=== PATIENT | female | born 1950 | race Caucasian/White ===

== ENCOUNTER → 2018-05-07 | Outpatient (CLI) | payer MEDICARE ==
[2018-05-07 08:23] LABS: Basophils % (A) 1 %; Eosinophils # (A) 0.4 k/uL (0-0.7); Eosinophils % (A) 5 %; HCT 33.5 % (34.0-46.0); HGB 10.8 gm/dL (11.4-16.0); Lymphocytes # (A) 1.6 k/uL (1.0-4.8); Lymphocytes % (A) 20 %; MCH 28.2 pg (25.0-35.0); MCHC 32.3 g/dL (31.0-37.0); MCV 87.2 fL (80.0-100.0); Mean Platelet Volume 6.6; Monocytes # (A) 0.5 k/uL (0-1.0); Monocytes % (A) 6 %; Neutrophils # (A) 5.4 k/uL (1.3-7.7); Neutrophils % (A) 67 %; Platelet Count 372 k/uL (150-450); RBC 3.84 m/uL (3.80-5.40); RDW 13.7 % (11.5-15.5)
[2018-05-07 08:32] LABS: Albumin 3.8 g/dL (3.5-5.0); Calcium 9.3 mg/dL (8.4-10.2); Potassium 4.7 mmol/L (3.5-5.1); Total Bilirubin 0.3 mg/dL (0.2-1.3); Total Protein 5.8 g/dL (6.3-8.2)
[2018-05-07 08:46] LABS: T4, Free (Free Thyroxine) 1.01 ng/dL (0.78-2.19)
[2018-05-07 17:32] LABS: Hemoglobin A1C 5.9 % (4.0-6.0)
== END | disposition home or self-care (01) ==
LOC: LABWHC1 07:20
PROVIDERS: ATTEND Internal Medicine Critical Care Medicine
DX: E78.5 Hyperlipidemia, unspecified (principal); I10 Essential (primary) hypertension; M81.0 Age-related osteoporosis without current pathological fracture; G43.909 Migraine, unspecified, not intractable, without status migrainosus; J45.909 Unspecified asthma, uncomplicated; E55.9 Vitamin D deficiency, unspecified
CPT/HCPCS: 36415; 80053; 80061; 83036; 84439; 84443; 85025

== ENCOUNTER → 2019-09-03 | Outpatient (CLI) | payer MEDICARE ==
[2019-09-03 09:20] LABS: Basophils # (A) 0.1 k/uL (0-0.2); Basophils % (A) 1 %; Eosinophils # (A) 0.6 k/uL (0-0.7); Eosinophils % (A) 7 %; Lymphocytes % (A) 22 %; MCH 29.9 pg (25.0-35.0); MCHC 34.2 g/dL (31.0-37.0); MCV 87.4 fL (80.0-100.0); Mean Platelet Volume 6.5; Monocytes # (A) 0.6 k/uL (0-1.0); Monocytes % (A) 7 %; Neutrophils # (A) 5.5 k/uL (1.3-7.7); Neutrophils % (A) 62 %; Platelet Count 428 k/uL (150-450); RBC 3.67 m/uL (3.80-5.40); RDW 13.4 % (11.5-15.5); WBC 8.9 k/uL (3.8-10.6)
[2019-09-03 16:44] LABS: ALT 22 U/L (8-44); AST 28 U/L (13-35); African American GFR (CKD) 25.8 (60.0-200.0); Albumin/Globulin Ratio 2.75 (1.60-3.17); Alkaline Phosphatase 67 U/L (41-126); BUN/Creat Ratio 14.55 Ratio (12.00-20.00); Bilirubin, Conjugated <0.20 mg/dL (0.20-0.40); Calcium 11.4 mg/dL (8.7-10.3); Carbon Dioxide 25.6 mmol/L (21.6-31.8); Chloride 99 mmol/L (96-109); Cholesterol 145 mg/dL (0-200); Globulin 1.6 g/dL (1.6-3.3); Glucose 83 mg/dL (70-110); LDL Cholesterol,Calculated 72.4 mg/dL (0.0-131.0); Potassium 4.6 mmol/L (3.5-5.5); Sodium 135 mmol/L (135-145); Total Bilirubin 0.3 mg/dL (0.3-1.2)
[2019-09-03 17:32] LABS: Hemoglobin A1C 5.8 % (4.0-6.0)
== END | disposition home or self-care (01) ==
LOC: LABWHC1 08:31
PROVIDERS: ATTEND Internal Medicine Critical Care Medicine
DX: Z00.00 Encounter for general adult medical examination without abnormal findings (principal); J45.909 Unspecified asthma, uncomplicated; R53.83 Other fatigue; E78.5 Hyperlipidemia, unspecified; E55.9 Vitamin D deficiency, unspecified; Z79.899 Other long term (current) drug therapy
CPT/HCPCS: 36415; 80053; 80061; 82248; 82306; 83036; 84439; 84443; 85025

== ENCOUNTER → 2019-09-08 | Outpatient (CLI) | payer MEDICARE ==
[~2019-09-08] MED LIST: IRON SUCROSE 300 MG in SODIUM CHLORIDE 0.9% 250 ML IVPB ONE; SODIUM CHLORIDE 0.9% 500 ML 500 ML in EMPTY BAG 1 BAG IV PRN
[2019-09-08 08:23] VITALS: BP 132/80; PULSE 87; RESP 16; TEMP 98.2
== END | disposition home or self-care (01) ==
LOC: PROCWHC3 08:00
PROVIDERS: ATTEND Internal Medicine Critical Care Medicine
DX: D50.9 Iron deficiency anemia, unspecified (principal)
CPT/HCPCS: 96365; J1756

== ENCOUNTER → 2019-10-20 | Outpatient (CLI) | payer MEDICARE ==
--- NOTE | 2019-10-20 11:30 | US ---
EXAMINATION TYPE: US kidneys/renal and bladder DATE OF EXAM: 10/20/2019 COMPARISON: NONE CLINICAL HISTORY: N17.9 Acute kidney injury. EXAM MEASUREMENTS: Right Kidney: 9.9 x 4.4 x 4.0 cm Left Kidney: 10.4 x 3.7 x 3.9 cm Right Kidney: No hydronephrosis or masses seen, lobular contour. Left Kidney: upper pole thin-walled cyst measures 3.5 x 3.7 x 3.7 cm. Bladder: not well distended Bilateral Jets seen: No There is no evidence for hydronephrosis at this point in time. No nephrolithiasis is seen. No ashley s are identified. The urinary bladder is poorly distended. Bilateral ureteral jets are not seen. IMPRESSION: Suboptimal evaluation of bladder due to poor distention. No hydronephrosis is noted bilat erally.
== END ==
LOC: RADUSWWP 08:59
PROVIDERS: ATTEND Internal Medicine Nephrology
DX: N32.89 Other specified disorders of bladder (principal)
CPT/HCPCS: 76770

== ENCOUNTER 2020-08-09 10:17 | Inpatient (IN) | payer MEDICARE ==
[2020-08-09] MEDS ORDERED: SODIUM CHLORIDE 0.9% 1,000 ML IV STA ×2 (10:29→10:45)
[2020-08-09] MEDS ORDERED: SODIUM CHLORIDE 0.9% 500 ML 500 ML IV STA ×2 (10:29→13:51)
[2020-08-09] MEDS ORDERED: LIDOCAINE/EPINEPHR/TETRACAINE 5 ML BOTTLE TOPICAL ONE (10:35)
[2020-08-09] MEDS ORDERED: PANTOPRAZOLE 40 MG/10 ML VIAL IVP STA (10:45)
[2020-08-09] MEDS ORDERED: ONDANSETRON 4 MG/2 ML VIAL IVP STA (10:45)
--- NOTE | 2020-08-09 10:45 | ED ---
Weakness HPI - General Chief complaint: Weakness Stated complaint: fall/head lac Time Seen by Provider: 08/09/20 10:29 Source: patient, RN notes reviewed, old records reviewed Mode of arrival: wheelchair Limitations: no limitations - History of Present Illness Initial comments: This is a 17-year-old female DF she presents today for evaluation regards to weakness and fall. Patient had a fall secondary to his syncopal versus a near syncopal event. Not complaining of headache should hit her head. Does admit to some recent dark stools and has been vomiting today. Currently nauseous with no active vomiting. No recent fevers cough congestion or chest pain MD Complaint: generalized weakness (Near syncopal event) -: days(s) Location: generalized Severity: moderate, severe Severity scale (1-10): 5 Consistency: constant Improves with: none Worsens with: none Context: recent illness, history of similar Associated Symptoms: nausea/vomiting - Related Data Home Medications Medication Instructions Recorded Confirmed Atorvastatin [Lipitor] 20 mg PO DAILY 09/26/14 08/09/20 Cholecalciferol [Vitamin D3 (25 2,000 unit PO DAILY 09/26/14 08/09/20 Mcg = 1000 Iu)] Montelukast [Singulair] 10 mg PO HS 09/26/14 08/09/20 Budesonide/Formoterol Fumarate 2 puff INHALATION RT-BID 05/19/15 08/09/20 [Symbicort 160-4.5 Mcg Inhaler] Denosumab [Prolia] 60 mg SQ Q180D 08/09/20 08/09/20 Hydrochlorothiazide 12.5mg Tab 12.5 mg PO DAILY 08/09/20 08/09/20 Levocetirizine Dihydrochloride 5 mg PO DAILY PRN 08/09/20 08/09/20 [Xyzal] Multivit-Min/FA/Lycopen/Lutein 1 tab PO DAILY 08/09/20 08/09/20 [Centrum Silver Tablet] Olmesartan Medoxomil 40 mg PO DAILY 08/09/20 08/09/20 SUMAtriptan [Sumatriptan] 1 spray NASAL BID PRN 08/09/20 08/09/20 Previous Rx's Medication Instructions Recorded Ipratropium-Albuterol Nebulize 3 ml INHALATION RT-QID ampul.neb 05/20/15 [Duoneb 0.5 mg-3 mg/3 ml Soln] Allergies Allergy/AdvReac Type Severity Reaction Status Date / Time corn [[place]] Allergy Anaphylaxis Verified 08/09/20 12:07 Fish Containing Products Allergy Anaphylaxis Verified 08/09/20 12:07 grass pollen Allergy Dyspnea Verified 08/09/20 12:13 Milk Containing Products Allergy Unknown Verified 08/09/20 12:13 [Dairy] mold Allergy Anaphylaxis Verified 08/09/20 12:07 Penicillins Allergy Anaphylaxis Verified 08/09/20 12:07 shellfish derived [Shellfish] Allergy Anaphylaxis Verified 08/09/20 12:07 tree and shrub pollen Allergy Dyspnea Verified 08/09/20 12:13 DUST Allergy Dyspnea Uncoded 08/09/20 12:13 Review of Systems ROS Statement: Those systems with pertinent positive or pertinent negative responses have been documented in the HPI. ROS Other: All systems not noted in ROS Statement are negative. Past Medical History Past Medical History: Asthma, Hyperlipidemia History of Any Multi-Drug Resistant Organisms: MRSA Date of last positivie culture/infection: right foot MDRO Source:: 05/06/2015 Past Surgical History: Appendectomy, Bladder Surgery, Section, Cholecystectomy, Hysterectomy, Orthopedic Surgery, Tonsillectomy, Tubal Ligation Additional Past Surgical History / Comment(s): x3, bilateral foot surgery r/t drop foot , right femur/hip screws Past Anesthesia/Blood Transfusion Reactions: Postoperative Nausea & Vomiting (PONV) Past Psychological History: No Psychological Hx Reported Smoking Status: Never smoker Past Alcohol Use History: None Reported Past Drug Use History: None Reported - Past Family History Mother Family Medical History: Hyperlipidemia, Hypertension Father Additional Family Medical History / Comment(s): Father developed heart problems in his late 80s. General Exam Limitations: no limitations General appearance: alert, in no apparent distress Head exam: Present: normocephalic, normal inspection. Absent: atraumatic (Laceration to her forehead) Eye exam: Present: normal appearance, PERRL, EOMI. Absent: scleral icterus, conjunctival injection, periorbital swelling ENT exam: Present: normal exam, mucous membranes moist Neck exam: Present: normal inspection. Absent: tenderness, meningismus, lymphadenopathy Respiratory exam: Present: normal lung sounds bilaterally. Absent: respiratory distress, wheezes, rales, rhonchi, stridor Cardiovascular Exam: Present: regular rate, normal rhythm, normal heart sounds. Absent: systolic murmur, diastolic murmur, rubs, gallop, clicks GI/Abdominal exam: Present: soft, normal bowel sounds. Absent: distended, tenderness, guarding, rebound, rigid Extremities exam: Present: normal inspection, full ROM, normal capillary refill. Absent: tenderness, pedal edema, joint swelling, calf tenderness Back exam: Present: normal inspection Neurological exam: Present: alert, oriented X3, CN II-XII intact Psychiatric exam: Present: normal affect, normal mood Skin exam: Present: warm, dry, intact, normal color. Absent: rash Course Vital Signs 08/09/20 08/09/20 08/09/20 10:18 10:31 10:36 Temperature 97.0 F L Pulse Rate 90 117 H Respiratory 16 18 Rate Blood Pressure 51/47 59/45 79/58 O2 Sat by Pulse 100 100 Oximetry 08/09/20 08/09/20 08/09/20 10:46 11:05 11:30 Temperature Pulse Rate 107 H 99 104 H Respiratory 18 16 18 Rate Blood Pressure 94/59 80/58 112/66 O2 Sat by Pulse 100 99 100 Oximetry 08/09/20 08/09/20 08/09/20 11:52 12:30 13:00 Temperature Pulse Rate 98 98 98 Respiratory 18 18 20 Rate Blood Pressure 120/67 107/90 89/57 O2 Sat by Pulse 98 100 99 Oximetry 08/09/20 08/09/20 08/09/20 13:39 14:00 14:30 Temperature Pulse Rate 91 98 101 H Respiratory 18 18 20 Rate Blood Pressure 96/67 95/56 104/56 O2 Sat by Pulse 100 99 98 Oximetry 08/09/20 08/09/20 08/09/20 14:58 15:08 15:38 Temperature 98.1 F 98.0 F 98.3 F Pulse Rate 101 H 102 H 101 H Respiratory 20 20 22 Rate Blood Pressure 104/46 94/53 104/63 O2 Sat by Pulse 100 99 99 Oximetry - Reevaluation(s) Reevaluation #1: 08/09/20 10:45 Medical records reviewed Patient is no headache chest pain shortness with abdominal pain here in the ER Patient informed results and questions answered No recurrent syncope here in the ER EKG Findings - EKG Comments: EKG Findings:: EKG is sinus tach 104 DC 128 QRS 86 QTc 462 Medical Decision Making - Medical Decision Making 70 female DF for evaluation patient comes in for syncopal event. We'll keep patient in observation for evaluation of cause of syncope - Lab Data Result diagrams: 08/10/20 07:54 08/10/20 07:54 Lab Results 08/09/20 08/09/20 08/09/20 Range/Units 10:39 10:39 10:39 WBC 25.7 H (3.8-10.6) k/uL RBC 3.10 L (3.80-5.40) m/uL Hgb 8.9 L (11.4-16.0) gm/dL Hct 27.5 L (34.0-46.0) % MCV 88.9 (80.0-100.0) fL MCH 28.9 (25.0-35.0) pg MCHC 32.5 (31.0-37.0) g/dL RDW 13.7 (11.5-15.5) % Plt Count 323 (150-450) k/uL Neutrophils % 87 % Lymphocytes % 7 % Monocytes % 5 % Eosinophils % 0 % Basophils % 0 % Neutrophils # 22.5 H (1.3-7.7) k/uL Lymphocytes # 1.8 (1.0-4.8) k/uL Monocytes # 1.2 H (0-1.0) k/uL Eosinophils # 0.0 (0-0.7) k/uL Basophils # 0.0 (0-0.2) k/uL PT (9.0-12.0) sec INR (<1.2) APTT (22.0-30.0) sec Sodium 137 (137-145) mmol/L Potassium 4.9 (3.5-5.1) mmol/L Chloride 104 (98-107) mmol/L Carbon Dioxide 18 L (22-30) mmol/L Anion Gap 15 mmol/L BUN 104 H* (7-17) mg/dL Creatinine 2.36 H (0.52-1.04) mg/dL Est GFR (CKD-EPI)AfAm 24 (>60 ml/min/1.73 sqM) Est GFR (CKD-EPI)NonAf 20 (>60 ml/min/1.73 sqM) Glucose 168 H (74-99) mg/dL Lactic Ac Sepsis Rflx Plasma Lactic Acid Dominic (0.7-2.0) mmol/L Calcium 9.8 (8.4-10.2) mg/dL Phosphorus 6.4 H (2.5-4.5) mg/dL Magnesium 2.2 (1.6-2.3) mg/dL Total Bilirubin 0.6 (0.2-1.3) mg/dL AST 23 (14-36) U/L ALT 16 (4-34) U/L Alkaline Phosphatase 39 (38-126) U/L Creatine Kinase 52 (30-135) U/L Troponin I (0.000-0.034) ng/mL NT-Pro-B Natriuret Pep pg/mL Total Protein 5.5 L (6.3-8.2) g/dL Albumin 3.4 L (3.5-5.0) g/dL TSH 1.420 (0.465-4.680) mIU/L Urine Color Light Yellow Urine Appearance Clear (Clear) Urine pH 5.0 (5.0-8.0) Ur Specific [place] 1.014 (1.001-1.035) Urine Protein Negative (Negative) Urine Glucose (UA) Negative (Negative) Urine Ketones Negative (Negative) Urine Blood Trace H (Negative) Urine Nitrite Negative (Negative) Urine Bilirubin Negative (Negative) Urine Urobilinogen <2.0 (<2.0) mg/dL Ur Leukocyte Esterase Negative (Negative) Urine RBC <1 (0-5) /hpf Urine WBC 1 (0-5) /hpf Hyaline Casts 1 (0-2) /lpf Urine Mucus Rare H (None) /hpf Blood Type Blood Type Confirm Blood Type Recheck Bld Type Recheck Status Antibody Screen Crossmatch Spec Expiration Date 08/09/20 08/09/20 08/09/20 Range/Units 10:39 10:39 10:39 WBC (3.8-10.6) k/uL RBC (3.80-5.40) m/uL Hgb (11.4-16.0) gm/dL Hct (34.0-46.0) % MCV (80.0-100.0) fL MCH (25.0-35.0) pg MCHC (31.0-37.0) g/dL RDW (11.5-15.5) % Plt Count (150-450) k/uL Neutrophils % % Lymphocytes % % Monocytes % % Eosinophils % % Basophils % % Neutrophils # (1.3-7.7) k/uL Lymphocytes # (1.0-4.8) k/uL Monocytes # (0-1.0) k/uL Eosinophils # (0-0.7) k/uL Basophils # (0-0.2) k/uL PT (9.0-12.0) sec INR (<1.2) APTT (22.0-30.0) sec Sodium (137-145) mmol/L Potassium (3.5-5.1) mmol/L Chloride (98-107) mmol/L Carbon Dioxide (22-30) mmol/L Anion Gap mmol/L BUN (7-17) mg/dL Creatinine (0.52-1.04) mg/dL Est GFR (CKD-EPI)AfAm (>60 ml/min/1.73 sqM) Est GFR (CKD-EPI)NonAf (>60 ml/min/1.73 sqM) Glucose (74-99) mg/dL Lactic Ac Sepsis Rflx Plasma Lactic Acid Dominic 5.3 H* (0.7-2.0) mmol/L Calcium (8.4-10.2) mg/dL Phosphorus (2.5-4.5) mg/dL Magnesium (1.6-2.3) mg/dL Total Bilirubin (0.2-1.3) mg/dL AST (14-36) U/L ALT (4-34) U/L Alkaline Phosphatase (38-126) U/L Creatine Kinase (30-135) U/L Troponin I 0.037 H* (0.000-0.034) ng/mL NT-Pro-B Natriuret Pep 961 pg/mL Total Protein (6.3-8.2) g/dL Albumin (3.5-5.0) g/dL TSH (0.465-4.680) mIU/L Urine Color Urine Appearance (Clear) Urine pH (5.0-8.0) Ur Specific [place] (1.001-1.035) Urine Protein (Negative) Urine Glucose (UA) (Negative) Urine Ketones (Negative) Urine Blood (Negative) Urine Nitrite (Negative) Urine Bilirubin (Negative) Urine Urobilinogen (<2.0) mg/dL Ur Leukocyte Esterase (Negative) Urine RBC (0-5) /hpf Urine WBC (0-5) /hpf Hyaline Casts (0-2) /lpf Urine Mucus (None) /hpf Blood Type Blood Type Confirm Blood Type Recheck Bld Type Recheck Status Antibody Screen Crossmatch Spec Expiration Date 08/09/20 08/09/20 08/09/20 Range/Units 11:22 11:38 13:27 WBC (3.8-10.6) k/uL RBC (3.80-5.40) m/uL Hgb (11.4-16.0) gm/dL Hct (34.0-46.0) % MCV (80.0-100.0) fL MCH (25.0-35.0) pg MCHC (31.0-37.0) g/dL RDW (11.5-15.5) % Plt Count (150-450) k/uL Neutrophils % % Lymphocytes % % Monocytes % % Eosinophils % % Basophils % % Neutrophils # (1.3-7.7) k/uL Lymphocytes # (1.0-4.8) k/uL Monocytes # (0-1.0) k/uL Eosinophils # (0-0.7) k/uL Basophils # (0-0.2) k/uL PT 10.4 (9.0-12.0) sec INR 1.0 (<1.2) APTT 18.0 L (22.0-30.0) sec Sodium (137-145) mmol/L Potassium (3.5-5.1) mmol/L Chloride (98-107) mmol/L Carbon Dioxide (22-30) mmol/L Anion Gap mmol/L BUN (7-17) mg/dL Creatinine (0.52-1.04) mg/dL Est GFR (CKD-EPI)AfAm (>60 ml/min/1.73 sqM) Est GFR (CKD-EPI)NonAf (>60 ml/min/1.73 sqM) Glucose (74-99) mg/dL Lactic Ac Sepsis Rflx Y Plasma Lactic Acid Dominic (0.7-2.0) mmol/L Calcium (8.4-10.2) mg/dL Phosphorus (2.5-4.5) mg/dL Magnesium (1.6-2.3) mg/dL Total Bilirubin (0.2-1.3) mg/dL AST (14-36) U/L ALT (4-34) U/L Alkaline Phosphatase (38-126) U/L Creatine Kinase (30-135) U/L Troponin I (0.000-0.034) ng/mL NT-Pro-B Natriuret Pep pg/mL Total Protein (6.3-8.2) g/dL Albumin (3.5-5.0) g/dL TSH (0.465-4.680) mIU/L Urine Color Urine Appearance (Clear) Urine pH (5.0-8.0) Ur Specific [place] (1.001-1.035) Urine Protein (Negative) Urine Glucose (UA) (Negative) Urine Ketones (Negative) Urine Blood (Negative) Urine Nitrite (Negative) Urine Bilirubin (Negative) Urine Urobilinogen (<2.0) mg/dL Ur Leukocyte Esterase (Negative) Urine RBC (0-5) /hpf Urine WBC (0-5) /hpf Hyaline Casts (0-2) /lpf Urine Mucus (None) /hpf Blood Type O Positive Blood Type Confirm Blood Type Recheck No Previous Record Bld Type Recheck Status CABO Indicated Antibody Screen NEGATIVE Crossmatch See Detail Spec Expiration Date 08/12/2020 - 232608/09/20 08/09/20 Range/Units 13:27 13:30 WBC (3.8-10.6) k/uL RBC (3.80-5.40) m/uL Hgb (11.4-16.0) gm/dL Hct (34.0-46.0) % MCV (80.0-100.0) fL MCH (25.0-35.0) pg MCHC (31.0-37.0) g/dL RDW (11.5-15.5) % Plt Count (150-450) k/uL Neutrophils % % Lymphocytes % % Monocytes % % Eosinophils % % Basophils % % Neutrophils # (1.3-7.7) k/uL Lymphocytes # (1.0-4.8) k/uL Monocytes # (0-1.0) k/uL Eosinophils # (0-0.7) k/uL Basophils # (0-0.2) k/uL PT (9.0-12.0) sec INR (<1.2) APTT (22.0-30.0) sec Sodium (137-145) mmol/L Potassium (3.5-5.1) mmol/L Chloride (98-107) mmol/L Carbon Dioxide (22-30) mmol/L Anion Gap mmol/L BUN (7-17) mg/dL Creatinine (0.52-1.04) mg/dL Est GFR (CKD-EPI)AfAm (>60 ml/min/1.73 sqM) Est GFR (CKD-EPI)NonAf (>60 ml/min/1.73 sqM) Glucose (74-99) mg/dL Lactic Ac Sepsis Rflx Plasma Lactic Acid Dominic 1.0 (0.7-2.0) mmol/L Calcium (8.4-10.2) mg/dL Phosphorus (2.5-4.5) mg/dL Magnesium (1.6-2.3) mg/dL Total Bilirubin (0.2-1.3) mg/dL AST (14-36) U/L ALT (4-34) U/L Alkaline Phosphatase (38-126) U/L Creatine Kinase (30-135) U/L Troponin I (0.000-0.034) ng/mL NT-Pro-B Natriuret Pep pg/mL Total Protein (6.3-8.2) g/dL Albumin (3.5-5.0) g/dL TSH (0.465-4.680) mIU/L Urine Color Urine Appearance (Clear) Urine pH (5.0-8.0) Ur Specific [place] (1.001-1.035) Urine Protein (Negative) Urine Glucose (UA) (Negative) Urine Ketones (Negative) Urine Blood (Negative) Urine Nitrite (Negative) Urine Bilirubin (Negative) Urine Urobilinogen (<2.0) mg/dL Ur Leukocyte Esterase (Negative) Urine RBC (0-5) /hpf Urine WBC (0-5) /hpf Hyaline Casts (0-2) /lpf Urine Mucus (None) /hpf Blood Type Blood Type Confirm O Positive Blood Type Recheck Bld Type Recheck Status Antibody Screen Crossmatch Spec Expiration Date - Radiology Data Radiology results: report reviewed (CT brain C-spine negative for traumatic injury), image reviewed Disposition Clinical Impression: Anemia, Syncope, Weak, GI bleed Disposition: ADMITTED IP TO THIS HOSP Condition: Fair Is patient prescribed a controlled substance at d/c from ED?: No
[2020-08-09 10:59] LABS: Basophils % (A) 0 %; Eosinophils % (A) 0 %; HCT 27.5 % (34.0-46.0); HGB 8.9 gm/dL (11.4-16.0); Lymphocytes # (A) 1.8 k/uL (1.0-4.8); Lymphocytes % (A) 7 %; MCH 28.9 pg (25.0-35.0); MCHC 32.5 g/dL (31.0-37.0); MCV 88.9 fL (80.0-100.0); Mean Platelet Volume 7.6; Monocytes # (A) 1.2 k/uL (0-1.0); Monocytes % (A) 5 %; Neutrophils # (A) 22.5 k/uL (1.3-7.7); Neutrophils % (A) 87 %; Platelet Count 323 k/uL (150-450); RDW 13.7 % (11.5-15.5); WBC 25.7 k/uL (3.8-10.6)
--- NOTE | 2020-08-09 11:33 | CT ---
EXAMINATION TYPE: CT brain harjinder wo con DATE OF EXAM: 08/09/2020 COMPARISON: HISTORY: Fall/head Lac. CT DLP: 1382.8 mGycm Automated exposure control for dose reduction was used. TECHNIQUE: CT scan of the head and cervical spine are performed without contrast. FINDINGS: There is no acute intracranial hemorrhage, mass effect, or midline shift identified. Penny ventricular white matter shows some minimal patchy low attenuation, there is mild cortical atrophy. T here are cerebral vascular calcifications. The left frontal region shows a laceration consistent with patient's history of trauma. The ventricles and sulci are within normal limits in size. The globes are intact and the visualized sinuses are clear. Cervical spine is visualized in its entirety from C1 through upper thoracic levels and demonstrates n ear-anatomic alignment without evidence of acute fracture or dislocation. There is spondylosis greate st at C2-3, C3-4, C5-6, C6-7. There are facet arthropathy changes, multilevel foraminal encroachment. Prevertebral soft tissue appears within normal limits. The C1-C2 articulation is unremarkable. Old proximal right first rib fracture shows nonunion in hypertrophic change. Probable interstitial lucia es present at the upper lobes. Thyroid shows a low dense lesion in the right lobe which is indetermin ate. IMPRESSION: 1. There is no acute fracture or dislocation evident in the cervical spine. 2. No acute intracranial hemorrhage, mass effect, or midline shift is seen.
[2020-08-09 12:00] LABS: Prothrombin Time 10.4 sec (9.0-12.0)
[2020-08-09 12:04] LABS: Albumin 3.4 g/dL (3.5-5.0); Calcium 9.8 mg/dL (8.4-10.2); Magnesium 2.2 mg/dL (1.6-2.3); Phosphorus 6.4 mg/dL (2.5-4.5); Potassium 4.9 mmol/L (3.5-5.1); Total Bilirubin 0.6 mg/dL (0.2-1.3); Total Protein 5.5 g/dL (6.3-8.2)
[2020-08-09 15:51] LABS: Appearance,Urine Clear (Clear); Bilirubin,Urine Negative (Negative); Blood,Urine Trace (Negative); Color,Urine Light Yellow; Glucose,Urine (UA) Negative (Negative); Hyaline Casts,Urine 1 /lpf (0-2); Ketones,Urine Negative (Negative); Leukocyte Esterase,Urine Negative (Negative); Mucus,Urine Rare /hpf; Nitrite,Urine Negative (Negative); Protein,Urine Negative (Negative); RBC,Urine <1 /hpf (0-5); Specific Gravity,Urine 1.014 (1.001-1.035); Urobilinogen,Urine <2.0 mg/dL (<2.0); WBC,Urine 1 /hpf (0-5)
--- NOTE | 2020-08-09 17:58 | XR ---
EXAMINATION TYPE: XR chest 1V DATE OF EXAM: 08/09/2020 COMPARISON: 11/13/2019 HISTORY: COPD. Cough. TECHNIQUE: FINDINGS: There is some coarse interstitial density left lower lobe. There is no heart failure. Heart size is normal. There are chest leads. IMPRESSION: Chronic interstitial density left lower lobe consistent with scarring and fibrosis. No si gnificant change compared to old exam. Normal heart.
[2020-08-09] MEDS: SYMBICORT 160-4.5 MCG INHALER INHALATION SCH (18:40)
[2020-08-09] MEDS: IPRATROPIUM-ALBUTEROL 3 ML NEB INHALATION SCH (18:40)
[2020-08-09] MEDS: MONTELUKAST 10 MG TAB PO SCH (20:28)
[2020-08-09] MEDS: PANTOPRAZOLE 40 MG/10 ML VIAL IVP SCH (20:28)
[2020-08-09 21:06] LABS: HCT 24.4 % (34.0-46.0); HGB 7.9 gm/dL (11.4-16.0); MCH 28.1 pg (25.0-35.0); MCHC 32.6 g/dL (31.0-37.0); MCV 86.2 fL (80.0-100.0); Mean Platelet Volume 7.4; Platelet Count 193 k/uL (150-450); RBC 2.83 m/uL (3.80-5.40); RDW 14.5 % (11.5-15.5); WBC 17.3 k/uL (3.8-10.6)
--- NOTE | 2020-08-09 22:28 | P.HPIM ---
History of Present Illness H&P Date: 08/09/20 Chief Complaint: Syncope Patient is a 70-year-old female with a known history of hypertension, hyperlipidemia, osteoarthritis, COPD and previous history of H1N1 pneumonia in 2 009 was on mechanical ventilator presents to ER with complaints of diarrhea, generalized weakness and fall today morning. Patient states that since yesterday she has been having diarrhea 3-4 times with dark-colored stools. Today morning when she was going to the bathroom she felt suddenly dizzy and had a syncopal episode and fell on the door. Patient is also complaining of nausea. No episodes of vomiting. No chest pain or shortness of breath. No fever no chills. Denies any history of GI bleed in the past. Laboratory data showed WBC 25.7, hemoglobin 8.9 and neutrophils 22.5 BUN 104 and creatinine 2.36 Lactic acid 5.3 Troponin 0 0.037 and proBNP 961 TSH 1.42 Chest x-ray showed chronic interstitial density left lower lobe consistent with scarring and fibrosis. No significant change compared to old exam. Urinalysis is negative for infection. CT head and cervical spine was done which showed no acute fracture or dislocation evident in the cervical spine. No acute intracranial hemorrhage, mass-effect, midline shift. EKG showed sinus tachycardia Review of Systems Constitutional: Patient denies any fever or chills . No generalized weakness or weight loss. Abdomen: Patient denied nausea vomiting and abdominal pain. does have drak stools with diarrhea. Cardiovascular: Patient denies any chest pain or short of breath no palpita tions. Respiratory: patient denied any cough is from production. No shortness of breath Neurologic: Patient denied any numbness or tingling headache. Musculoskeletal: Patient denies any complaints of joint swelling or deformity. Skin: Negative Psychiatric: Negative Endocrine: No heat or cold intolerance. No recent weight gain. Genitourinary: No dysuria or hematuria. All other 14 point ROS negative except the above Past Medical History Past Medical History: Asthma, COPD, Hyperlipidemia, Hypertension, Osteoarthritis (OA), Pneumonia Additional Past Medical History / Comment(s): 2009 pneumonia/H1N1/was in ICU/vented 3 months/had fungal lung infection/foot drop, bronchitis, chronic sinusitis/sinus allergies, osteoporosis, migraines. History of Any Multi-Drug Resistant Organisms: MRSA Date of last positivie culture/infection: right foot MDRO Source:: 05/06/2015 Past Surgical History: Appendectomy, Bladder Surgery, Section, Cholecystectomy, Hysterectomy, Orthopedic Surgery, Tonsillectomy, Tubal Ligation Additional Past Surgical History / Comment(s): x3, bilateral foot surgery r/t drop foot , right femur/hip screws, bladder suspension, R breast benign biopsy. Past Anesthesia/Blood Transfusion Reactions: Postoperative Nausea & Vomiting (PONV) Additional Past Anesthesia/Blood Transfusion Reaction / Comment(s): Pt has received blood in past without reaction. Smoking Status: Never smoker - Past Family History Father Additional Family Medical History / Comment(s): Father developed heart problems in his late 80s. Mother Family Medical History: Hyperlipidemia, Hypertension Medications and Allergies Home Medications Medication Instructions Recorded Confirmed Type Atorvastatin [Lipitor] 20 mg PO DAILY 09/26/14 08/09/20 History Cholecalciferol [Vitamin D3 (25 2,000 unit PO DAILY 09/26/14 08/09/20 History Mcg = 1000 Iu)] Montelukast [Singulair] 10 mg PO HS 09/26/14 08/09/20 History Budesonide/Formoterol Fumarate 2 puff INHALATION RT-BID 05/19/15 08/09/20 History [Symbicort 160-4.5 Mcg Inhaler] Ipratropium-Albuterol Nebulize 3 ml INHALATION RT-QID ampul.neb 05/20/15 08/09/20 Rx [Duoneb 0.5 mg-3 mg/3 ml Soln] Denosumab [Prolia] 60 mg SQ Q180D 08/09/20 08/09/20 History Hydrochlorothiazide 12.5mg Tab 12.5 mg PO DAILY 08/09/20 08/09/20 History Levocetirizine Dihydrochloride 5 mg PO DAILY PRN 08/09/20 08/09/20 History [Xyzal] Multivit-Min/FA/Lycopen/Lutein 1 tab PO DAILY 08/09/20 08/09/20 History [Centrum Silver Tablet] Olmesartan Medoxomil 40 mg PO DAILY 08/09/20 08/09/20 History SUMAtriptan [Sumatriptan] 1 spray NASAL BID PRN 08/09/20 08/09/20 History Allergies Allergy/AdvReac Type Severity Reaction Status Date / Time corn [[place]] Allergy Anaphylaxis Verified 08/09/20 12:07 Fish Containing Products Allergy Anaphylaxis Verified 08/09/20 12:07 grass pollen Allergy Dyspnea Verified 08/09/20 12:13 Milk Containing Products Allergy Unknown Verified 08/09/20 12:13 [Dairy] mold Allergy Anaphylaxis Verified 08/09/20 12:07 Penicillins Allergy Anaphylaxis Verified 08/09/20 12:07 shellfish derived [Shellfish] Allergy Anaphylaxis Verified 08/09/20 12:07 tree and shrub pollen Allergy Dyspnea Verified 08/09/20 12:13 DUST Allergy Dyspnea Uncoded 08/09/20 12:13 Physical Exam Vitals: Vital Signs Temp Pulse Pulse Resp BP BP Pulse Ox 08/09/20 15:45 98.1 F 103 H 18 104/53 99 08/09/20 15:38 98.3 F 101 H 22 104/63 99 08/09/20 15:08 98.0 F 102 H 20 94/53 99 08/09/20 14:58 98.1 F 101 H 20 104/46 100 08/09/20 14:30 101 H 20 104/56 98 08/09/20 14:00 98 18 95/56 99 08/09/20 13:39 91 18 96/67 100 08/09/20 13:00 98 20 89/57 99 08/09/20 12:30 98 18 107/90 100 08/09/20 11:52 98 18 120/67 98 08/09/20 11:30 104 H 18 112/66 100 08/09/20 11:05 99 16 80/58 99 08/09/20 10:46 107 H 18 94/59 100 08/09/20 10:36 79/58 08/09/20 10:31 117 H 18 59/45 100 08/09/20 10:18 97.0 F L 90 16 51/47 100 Intake and Output 08/09/20 08/09/20 08/09/20 06:59 14:59 22:59 Intake Total 0 Balance 0 Intake: Blood Product 0 Rc Cpda-1 Unit 0 [id number] Other: Weight 63.503 kg 63.503 kg PHYSICAL EXAMINATION: Patient is lying in the bed comfortably, no acute distress, awake alert and oriented.. HEENT: Normocephalic. Neck is supple. Pupils reactive. Nostrils clear. Oral c avity is moist. Ears reveal no drainage. Neck reveals no JVD, carotid bruits, or thyromegaly. CHEST EXAMINATION: Trachea is central. Symmetrical expansion. Lung cote clear to auscultation and percussion. CARDIAC: Normal S1, S2 with no gallops. No murmurs ABDOMEN: Soft. Bowel sounds normal. No organomegaly. No abdominal bruits. Extremities: reveal no edema. No clubbing or cyanosis Neurologically awake, alert, oriented x3 with well-coordinated movements. No focal deficits noted Skin: No rash or skin lesions. Psychiatric: Coperative. Nonsuicidal Musculoskeletal: No joint swelling or deformity. Normal range of motion. Results CBC & Chem 7: 08/09/20 20:55 08/09/20 10:39 Labs: Abnormal Lab Results - Last 24 Hours (Table) 08/09/20 08/09/20 08/09/20 Range/Units 10:39 10:39 10:39 WBC 25.7 H (3.8-10.6) k/uL RBC 3.10 L (3.80-5.40) m/uL Hgb 8.9 L (11.4-16.0) gm/dL Hct 27.5 L (34.0-46.0) % Neutrophils # 22.5 H (1.3-7.7) k/uL Monocytes # 1.2 H (0-1.0) k/uL APTT (22.0-30.0) sec Carbon Dioxide 18 L (22-30) mmol/L BUN 104 H* (7-17) mg/dL Creatinine 2.36 H (0.52-1.04) mg/dL Glucose 168 H (74-99) mg/dL Plasma Lactic Acid Dominic (0.7-2.0) mmol/L Phosphorus 6.4 H (2.5-4.5) mg/dL Troponin I (0.000-0.034) ng/mL Total Protein 5.5 L (6.3-8.2) g/dL Albumin 3.4 L (3.5-5.0) g/dL Urine Blood Trace H (Negative) Urine Mucus Rare H (None) /hpf Crossmatch 08/09/20 08/09/20 08/09/20 Range/Units 10:39 10:39 11:38 WBC (3.8-10.6) k/uL RBC (3.80-5.40) m/uL Hgb (11.4-16.0) gm/dL Hct (34.0-46.0) % Neutrophils # (1.3-7.7) k/uL Monocytes # (0-1.0) k/uL APTT 18.0 L (22.0-30.0) sec Carbon Dioxide (22-30) mmol/L BUN (7-17) mg/dL Creatinine (0.52-1.04) mg/dL Glucose (74-99) mg/dL Plasma Lactic Acid Dominic 5.3 H* (0.7-2.0) mmol/L Phosphorus (2.5-4.5) mg/dL Troponin I 0.037 H* (0.000-0.034) ng/mL Total Protein (6.3-8.2) g/dL Albumin (3.5-5.0) g/dL Urine Blood (Negative) Urine Mucus (None) /hpf Crossmatch 08/09/20 Range/Units 13:27 WBC (3.8-10.6) k/uL RBC (3.80-5.40) m/uL Hgb (11.4-16.0) gm/dL Hct (34.0-46.0) % Neutrophils # (1.3-7.7) k/uL Monocytes # (0-1.0) k/uL APTT (22.0-30.0) sec Carbon Dioxide (22-30) mmol/L BUN (7-17) mg/dL Creatinine (0.52-1.04) mg/dL Glucose (74-99) mg/dL Plasma Lactic Acid Dominic (0.7-2.0) mmol/L Phosphorus (2.5-4.5) mg/dL Troponin I (0.000-0.034) ng/mL Total Protein (6.3-8.2) g/dL Albumin (3.5-5.0) g/dL Urine Blood (Negative) Urine Mucus (None) /hpf Crossmatch See Detail Thrombosis Risk Factor Assmnt - DVT/VTE Prophylaxis DVT/VTE Prophylaxis: Mechanical Prophylaxis ordered - Choose All That Apply Any of the Below Risk Factors Present?: Yes Each Factor Represents 1 point: Obesity (BMI >25) Other Risk Factors: Yes Each Risk Factor Represents 2 Points: Age 61-74 years Other congenital or acquired thrombophilia - If yes, enter type in comment: No Thrombosis Risk Factor Assessment Total Risk Factor Score: 3 Thrombosis Risk Factor Assessment Level: Moderate Risk Assessment and Plan Assessment: Acute syncopal episode/status post fall with laceration on the forehead. Likely due to volume depletion and GI bleed Acute blood loss anemia secondary to GI bleed Diarrhea dark-colored stools Acute kidney injury with creatinine 2.36 and significant prerenal azotemia with GI bleed. Severe lactic acidosis. Improved now Leukocytosis without evidence of infection. Chest x-ray and UA negative. Likely reactive. Mild elevated troponin level possible demand mismatch. Hypertension Hyperlipidemia COPD History of H1N1 pneumonia DVT prophylaxis with SCDs Plan: Patient will require IV hydration with normal saline. Monitor electrolytes. And renal function. Continue with Protonix IV twice daily and GI was consulted. Monitor H&H and transfuse if the hemoglobin level is less than 7. Continue to follow closely. Cardiology was consulted as well for elevated troponin level. Further recommendations based on the clinical course. Prognosis is guarded at this time. Time with Patient: Greater than 30
[2020-08-10] MEDS: IPRATROPIUM-ALBUTEROL 3 ML NEB INHALATION SCH ×4 (08:16→18:50)
[2020-08-10] MEDS: SYMBICORT 160-4.5 MCG INHALER INHALATION SCH ×2 (08:17→18:48)
[2020-08-10 08:20] LABS: Basophils % (A) 0 %; Eosinophils % (A) 0 %; HCT 23.7 % (34.0-46.0); HGB 7.8 gm/dL (11.4-16.0); Lymphocytes # (A) 1.4 k/uL (1.0-4.8); Lymphocytes % (A) 14 %; MCH 28.1 pg (25.0-35.0); MCHC 32.8 g/dL (31.0-37.0); MCV 85.7 fL (80.0-100.0); Mean Platelet Volume 7.3; Monocytes # (A) 0.5 k/uL (0-1.0); Monocytes % (A) 5 %; Neutrophils # (A) 8.3 k/uL (1.3-7.7); Neutrophils % (A) 80 %; Platelet Count 174 k/uL (150-450); RBC 2.76 m/uL (3.80-5.40); RDW 14.8 % (11.5-15.5); WBC 10.4 k/uL (3.8-10.6)
[2020-08-10] MEDS: PANTOPRAZOLE 40 MG/10 ML VIAL IVP SCH ×2 (08:35→20:19)
[2020-08-10] MEDS: ATORVASTATIN 20 MG TAB PO SCH (08:36)
[2020-08-10 08:38] LABS: Calcium 7.9 mg/dL (8.4-10.2); Potassium 4.5 mmol/L (3.5-5.1)
--- NOTE | 2020-08-10 11:22 | P.CRDCN ---
History of Present Illness Consult date: 08/10/20 Chief complaint: Loss of consciousness History of present illness: This is a very pleasant 70-year-old female patient with a past medical history significant for hypertension and dyslipidemia was admitted to the hospital with syncope. The patient is a somewhat poor historian. She was in her usual state of health last night when she woke up from sleep to go to the bathroom and on her way back from the bathroom to bed she didn't lost her consciousness and hit her head and forehead against a wall and she had few stitches severe. She does not recall having any symptoms of chest pain or chest discomfort or any shortness of breath or any dizziness or lightheadedness on the episode nor feeling of heart racing or fluttering. We consulted to see the patient for further evaluation of syncope. Please note that the patient was experiencing intermittent episodes of diarrhea for the last 24 hours. When she presented to the hospital she was definitely dehydrated and she was in acute renal failure. Her kidney function has improved significantly after she received an IV fluid. Now she is feeling overall better. She denies any chest pain or chest discomfort or any shortness of breath or any dizziness at this point. The computed tomography scan of the brain was performed and came in to be unremarkable. The EKG showed sinus rhythm without any significant ST or T-wave abnormalities. Currently her losartan as a blood pressure medication is on hold. I did review the patient's telemetry strip within the last 24 hours since she was admitted to the hospital there is no indication of any cardiac arrhythmia noted. Past Medical History Past Medical History: Asthma, COPD, Hyperlipidemia, Hypertension, Osteoarthritis (OA), Pneumonia Additional Past Medical History / Comment(s): 2009 pneumonia/H1N1/was in ICU/vented 3 months/had fungal lung infection/foot drop, bronchitis, chronic sinusitis/sinus allergies, osteoporosis, migraines. History of Any Multi-Drug Resistant Organisms: MRSA Date of last positivie culture/infection: right foot MDRO Source:: 05/06/2015 Past Surgical History: Appendectomy, Bladder Surgery, Section, Cholecystectomy, Hysterectomy, Orthopedic Surgery, Tonsillectomy, Tubal Ligation Additional Past Surgical History / Comment(s): x3, bilateral foot surgery r/t drop foot , right femur/hip screws, bladder suspension, R breast benign biopsy. Past Anesthesia/Blood Transfusion Reactions: Postoperative Nausea & Vomiting (PONV) Additional Past Anesthesia/Blood Transfusion Reaction / Comment(s): Pt has received blood in past without reaction. Smoking Status: Never smoker - Past Family History Father Additional Family Medical History / Comment(s): Father developed heart problems in his late 80s. Mother Family Medical History: Hyperlipidemia, Hypertension Medications and Allergies Home Medications Medication Instructions Recorded Confirmed Type Atorvastatin [Lipitor] 20 mg PO DAILY 09/26/14 08/09/20 History Cholecalciferol [Vitamin D3 (25 2,000 unit PO DAILY 09/26/14 08/09/20 History Mcg = 1000 Iu)] Montelukast [Singulair] 10 mg PO HS 09/26/14 08/09/20 History Budesonide/Formoterol Fumarate 2 puff INHALATION RT-BID 05/19/15 08/09/20 History [Symbicort 160-4.5 Mcg Inhaler] Ipratropium-Albuterol Nebulize 3 ml INHALATION RT-QID ampul.neb 05/20/15 08/09/20 Rx [Duoneb 0.5 mg-3 mg/3 ml Soln] Denosumab [Prolia] 60 mg SQ Q180D 08/09/20 08/09/20 History Hydrochlorothiazide 12.5mg Tab 12.5 mg PO DAILY 08/09/20 08/09/20 History Levocetirizine Dihydrochloride 5 mg PO DAILY PRN 08/09/20 08/09/20 History [Xyzal] Multivit-Min/FA/Lycopen/Lutein 1 tab PO DAILY 08/09/20 08/09/20 History [Centrum Silver Tablet] Olmesartan Medoxomil 40 mg PO DAILY 08/09/20 08/09/20 History SUMAtriptan [Sumatriptan] 1 spray NASAL BID PRN 08/09/20 08/09/20 History Allergies Allergy/AdvReac Type Severity Reaction Status Date / Time corn [[place]] Allergy Anaphylaxis Verified 08/09/20 12:07 Fish Containing Products Allergy Anaphylaxis Verified 08/09/20 12:07 grass pollen Allergy Dyspnea Verified 08/09/20 12:13 Milk Containing Products Allergy Unknown Verified 08/09/20 12:13 [Dairy] mold Allergy Anaphylaxis Verified 08/09/20 12:07 Penicillins Allergy Anaphylaxis Verified 08/09/20 12:07 shellfish derived [Shellfish] Allergy Anaphylaxis Verified 08/09/20 12:07 tree and shrub pollen Allergy Dyspnea Verified 08/09/20 12:13 DUST Allergy Dyspnea Uncoded 08/09/20 12:13 Physical Exam Vitals: Vital Signs Temp Pulse Pulse Resp BP BP Pulse Ox 08/10/20 08:30 97.9 F 30 L 18 122/65 100 08/10/20 08:29 95 08/10/20 08:17 92 100 08/10/20 03:35 90 18 106/53 99 08/10/20 00:00 96 18 124/59 100 08/09/20 20:00 98.1 F 99 18 115/51 98 08/09/20 18:55 100 18 08/09/20 18:43 101 H 18 08/09/20 18:10 98.5 F 103 H 16 109/54 99 08/09/20 16:00 101 H 16 08/09/20 15:45 98.1 F 103 H 18 104/53 99 08/09/20 15:38 98.3 F 101 H 22 104/63 99 08/09/20 15:08 98.0 F 102 H 20 94/53 99 08/09/20 14:58 98.1 F 101 H 20 104/46 100 08/09/20 14:30 101 H 20 104/56 98 08/09/20 14:00 98 18 95/56 99 08/09/20 13:39 91 18 96/67 100 08/09/20 13:00 98 20 89/57 99 08/09/20 12:30 98 18 107/90 100 08/09/20 11:52 98 18 120/67 98 08/09/20 11:30 104 H 18 112/66 100 Intake and Output 08/09/20 08/10/20 08/10/20 22:59 06:59 14:59 Intake Total 310 Output Total 450 Balance 310 -450 Intake: Blood Product 310 Rc Cpda-1 Unit 310 [id number] Output: Urine 450 Other: Voiding Method Toilet Toilet # Voids 1 # Bowel Movements 0 Weight 63.503 kg 64.3 kg - Constitutional General appearance: no acute distress - Respiratory Respiratory: bilateral: CTA - Cardiovascular Rhythm: regular Heart sounds: normal: S1, S2 Results 08/10/20 07:54 08/10/20 07:54 Cardiac Enzymes 08/09/20 08/09/20 Range/Units 10:39 10:39 AST 23 (14-36) U/L Troponin I 0.037 H* (0.000-0.034) ng/mL Coagulation 08/09/20 Range/Units 11:38 PT 10.4 (9.0-12.0) sec APTT 18.0 L (22.0-30.0) sec CBC 08/09/20 08/10/20 Range/Units 20:55 07:54 WBC 17.3 H 10.4 (3.8-10.6) k/uL RBC 2.83 L 2.76 L (3.80-5.40) m/uL Hgb 7.9 L 7.8 L (11.4-16.0) gm/dL Hct 24.4 L 23.7 L (34.0-46.0) % Plt Count 193 174 (150-450) k/uL Comprehensive Metabolic Panel 08/09/20 08/10/20 Range/Units 10:39 07:54 Sodium 137 137 (137-145) mmol/L Potassium 4.9 4.5 (3.5-5.1) mmol/L Chloride 104 110 H (98-107) mmol/L Carbon Dioxide 18 L 22 (22-30) mmol/L BUN 104 H* 57 H (7-17) mg/dL Creatinine 2.36 H 1.73 H (0.52-1.04) mg/dL Glucose 168 H 107 H (74-99) mg/dL Calcium 9.8 7.9 L (8.4-10.2) mg/dL AST 23 (14-36) U/L ALT 16 (4-34) U/L Alkaline Phosphatase 39 (38-126) U/L Total Protein 5.5 L (6.3-8.2) g/dL Albumin 3.4 L (3.5-5.0) g/dL Current Medications Generic Name Dose Route Start Last Admin Trade Name Freq PRN Reason Stop Dose Admin Albuterol/Ipratropium 3 ml 08/09/20 20:00 08/10/20 08:16 Ipratropium-Albuterol 3 Ml Neb INHALATION 3 ml RT-QID WADE Administration Atorvastatin Calcium 20 mg 08/10/20 09:00 08/10/20 08:36 Atorvastatin 20 Mg Tab PO 20 mg DAILY WADE Administration Budesonide/Formoterol Fumarate 2 puff 08/09/20 20:00 08/10/20 08:17 Symbicort 160-4.5 Mcg Inhaler INHALATION 2 puff RT-BID WADE Administration Montelukast Sodium 10 mg 08/09/20 21:00 08/09/20 20:28 Montelukast 10 Mg Tab PO 10 mg HS WADE Administration Pantoprazole Sodium 40 mg 08/09/20 21:00 08/10/20 08:35 Pantoprazole 40 Mg/10 Ml Vial IVP 40 mg BID WADE Administration Intake and Output 08/09/20 08/10/20 08/10/20 22:59 06:59 14:59 Intake Total 310 Output Total 450 Balance 310 -450 Intake: Blood Product 310 Rc Cpda-1 Unit 310 [id number] Output: Urine 450 Other: Voiding Method Toilet Toilet # Voids 1 # Bowel Movements 0 Weight 63.503 kg 64.3 kg 08/10/20 07:54 08/10/20 07:54 Assessment and Plan Assessment: Assessment #1 dehydration #2 syncope secondary to dehydration and low blood pressure #3 diarrhea #4 dyslipidemia Plan #1 continue IV fluid #2 the syncope is likely related to low blood pressure secondary to dehydration #3 repeat orthostatic blood pressure tomorrow morning #4 continue holding the blood pressure medication #5 obtain an echocardiogram was Doppler #6 follow up with the patient
[2020-08-10 19:59] LABS: % Iron Saturation 36.76 (12.00-45.00)
[2020-08-10 20:08] LABS: Ferritin 57.8 ng/mL (10.0-291.0)
[2020-08-10 20:14] LABS: Folate, Serum 14.1 ng/mL
[2020-08-10] MEDS: MONTELUKAST 10 MG TAB PO SCH (20:19)
--- NOTE | 2020-08-10 21:53 | P.CONS ---
History of Present Illness - Reason for Consult Consult date: 08/10/20 melena, anemia Requesting physician: Wilfred Carreon - Chief Complaint echanical fall, weakness, melena - History of Present Illness 70-year-old female with a medical history significant for hypertension, COPD, osteoarthritis and hyperlipidemia who presented to the hospital due to weakness and a fall. Patient reports a mechanical fall prior to presentation and is curr ently being evaluated by the cardiology service. She also reported multiple episodes of loose dark colored stool prior to presentation. She reports that this has been occurring over the pastfew days with the bowel movements described as nonbloody but dark in color. She reports approximately 3-4 episodes total. No abdominal pain reported. She does report a history ofiron deficiency in the past and iron supplementation. She was found to be anemic on presentation and transfuse 1 unit of packed red blood cells with her hemoglobin currently 7.8 status post transfusion. She relates her last colonoscopy was 7 years ago at which time she was told it was normal and shehad repeat her screening colonoscopy in 10 years. She does report occasional use of Excedrinwith states that she does not take this daily. She believes she has a remote history of peptic ulcer disease. Review of Systems REVIEW OF SYSTEMS: CONSTITUTIONAL: Denies any fevers, chills, weight change she does report weakness. CARDIOVASCULAR: Denies any chest pain, palpitations high or low blood pressures, but she does report dizziness and a mechanical fall RESPIRATORY: Denies any shortness of breath, hemoptysis or cough. GENITOURINARY: No dysuria or hematuria. MUSCULOSKELETAL: No weakness reported. SKIN: Denies any new rashes or lesions, jaundice or pallor. PSYCHIATRIC: Denies any depression or anxiety. NEUROLOGY: Denies headache, denies any new focal deficits. EARS/NOSE/THROAT: No recent hearing change, congestion, nasal discharge or sore throat. EYES: No pain in eyes, discharge or change in vision. GASTROINTESTINAL: As per HPI. Past Medical History Past Medical History: Asthma, COPD, Hyperlipidemia, Hypertension, Osteoarthritis (OA), Pneumonia Additional Past Medical History / Comment(s): 2009 pneumonia/H1N1/was in ICU/vented 3 months/had fungal lung infection/foot drop, bronchitis, chronic sinusitis/sinus allergies, osteoporosis, migraines. History of Any Multi-Drug Resistant Organisms: MRSA Year Discovered:: right foot MDRO Source:: 05/06/2015 Past Surgical History: Appendectomy, Bladder Surgery, Section, Cholecystectomy, Hysterectomy, Orthopedic Surgery, Tonsillectomy, Tubal Ligation Additional Past Surgical History / Comment(s): x3, bilateral foot surgery r/t drop foot , right femur/hip screws, bladder suspension, R breast benign biopsy. Past Anesthesia/Blood Transfusion Reactions: Postoperative Nausea & Vomiting (PONV) Additional Past Anesthesia/Blood Transfusion Reaction / Comm: Pt has received blood in past without reaction. Smoking Status: Never smoker - Past Family History Father Additional Family Medical History / Comment(s): Father developed heart problems in his late 80s. Mother Family Medical History: Hyperlipidemia, Hypertension Medications and Allergies Home Medications Medication Instructions Recorded Confirmed Type Atorvastatin [Lipitor] 20 mg PO DAILY 09/26/14 08/09/20 History Cholecalciferol [Vitamin D3 (25 2,000 unit PO DAILY 09/26/14 08/09/20 History Mcg = 1000 Iu)] Montelukast [Singulair] 10 mg PO HS 09/26/14 08/09/20 History Budesonide/Formoterol Fumarate 2 puff INHALATION RT-BID 05/19/15 08/09/20 History [Symbicort 160-4.5 Mcg Inhaler] Ipratropium-Albuterol Nebulize 3 ml INHALATION RT-QID ampul.neb 05/20/15 08/09/20 Rx [Duoneb 0.5 mg-3 mg/3 ml Soln] Denosumab [Prolia] 60 mg SQ Q180D 08/09/20 08/09/20 History Hydrochlorothiazide 12.5mg Tab 12.5 mg PO DAILY 08/09/20 08/09/20 History Levocetirizine Dihydrochloride 5 mg PO DAILY PRN 08/09/20 08/09/20 History [Xyzal] Multivit-Min/FA/Lycopen/Lutein 1 tab PO DAILY 08/09/20 08/09/20 History [Centrum Silver Tablet] Olmesartan Medoxomil 40 mg PO DAILY 08/09/20 08/09/20 History SUMAtriptan [Sumatriptan] 1 spray NASAL BID PRN 08/09/20 08/09/20 History Allergies Allergy/AdvReac Type Severity Reaction Status Date / Time corn [[place]] Allergy Anaphylaxis Verified 08/09/20 12:07 Fish Containing Products Allergy Anaphylaxis Verified 08/09/20 12:07 grass pollen Allergy Dyspnea Verified 08/09/20 12:13 Milk Containing Products Allergy Unknown Verified 08/09/20 12:13 [Dairy] mold Allergy Anaphylaxis Verified 08/09/20 12:07 Penicillins Allergy Anaphylaxis Verified 08/09/20 12:07 shellfish derived [Shellfish] Allergy Anaphylaxis Verified 08/09/20 12:07 tree and shrub pollen Allergy Dyspnea Verified 08/09/20 12:13 DUST Allergy Dyspnea Uncoded 08/09/20 12:13 Physical Exam Vitals: Vital Signs Temp Pulse Pulse Resp BP BP Pulse Ox 08/10/20 11:41 80 08/10/20 11:40 98 F 93 18 132/66 100 08/10/20 11:29 79 08/10/20 08:30 97.9 F 90 18 122/65 100 08/10/20 08:29 95 08/10/20 08:17 92 100 08/10/20 03:35 90 18 106/53 99 08/10/20 00:00 96 18 124/59 100 08/09/20 20:00 98.1 F 99 18 115/51 98 08/09/20 18:55 100 18 08/09/20 18:43 101 H 18 08/09/20 18:10 98.5 F 103 H 16 109/54 99 08/09/20 16:00 101 H 16 08/09/20 15:45 98.1 F 103 H 18 104/53 99 08/09/20 15:38 98.3 F 101 H 22 104/63 99 08/09/20 15:08 98.0 F 102 H 20 94/53 99 08/09/20 14:58 98.1 F 101 H 20 104/46 100 08/09/20 14:30 101 H 20 104/56 98 Intake and Output 08/09/20 08/10/20 08/10/20 22:59 06:59 14:59 Intake Total 310 Output Total 450 Balance 310 -450 Intake: Blood Product 310 Rc Cpda-1 Unit 310 [id number] Output: Urine 450 Other: Voiding Method Toilet Toilet # Voids 1 # Bowel Movements 0 Weight 63.503 kg 64.3 kg On physical examination, patient appears comfortable in no apparent distress. HEAD: Normocephalic, Will healing laceration from fall noted. EYES: No scleral icterus. No conjunctival injection. MOUTH: No lesions, tongue midline. NECK: Trachea midline, no gross abnormalities. CHEST: decreased air entry in all lung cote. HEART: Regular rate and rhythm. ABDOMEN: Soft, nontender to palpation. Bowel sounds are positive. No organomegaly. No guarding or rigidity. EXTREMITIES: No pedal edema. SKIN: No rashes, no jaundice. NEUROLOGIC: Alert and oriented x3. No focal deficits. Results CBC & Chem 7: 08/10/20 07:54 08/10/20 07:54 Labs: Abnormal Lab Results - Last 24 Hours (Table) 08/09/20 08/09/20 08/09/20 Range/Units 10:39 13:27 20:55 WBC 17.3 H (3.8-10.6) k/uL RBC 2.83 L (3.80-5.40) m/uL Hgb 7.9 L (11.4-16.0) gm/dL Hct 24.4 L (34.0-46.0) % Neutrophils # (1.3-7.7) k/uL Chloride (98-107) mmol/L BUN (7-17) mg/dL Creatinine (0.52-1.04) mg/dL Glucose (74-99) mg/dL Calcium (8.4-10.2) mg/dL Urine Blood Trace H (Negative) Urine Mucus Rare H (None) /hpf Crossmatch See Detail 08/10/20 08/10/20 Range/Units 07:54 07:54 WBC (3.8-10.6) k/uL RBC 2.76 L (3.80-5.40) m/uL Hgb 7.8 L (11.4-16.0) gm/dL Hct 23.7 L (34.0-46.0) % Neutrophils # 8.3 H (1.3-7.7) k/uL Chloride 110 H (98-107) mmol/L BUN 57 H (7-17) mg/dL Creatinine 1.73 H (0.52-1.04) mg/dL Glucose 107 H (74-99) mg/dL Calcium 7.9 L (8.4-10.2) mg/dL Urine Blood (Negative) Urine Mucus (None) /hpf Crossmatch Chest x-ray: report reviewed (chronic changes noted on chest x-ray with no acute process noted) Assessment and Plan (1) Anemia associated with acute blood loss Narrative/Plan: 70-year-old female with multiple medical comorbidities presenting to the hospital due to mechanical fall, weakness and dark-colored stool. She reports a remote history of peptic ulcer disease and states her last colonoscopy was 7 years ago. She had been having somedark loose bowel movements prior to pre sentation proximally for episodes. No abdominal pain reported. She does report occasional use of Excedrin. Patient was noted to haveelevatedBUN to creatinine ratio on presentation suggestive of upper GI bleed. Differential includes, peptic ulcer disease, erosive gastritis or esophagitis, AVM or other etiology. Current Visit: Yes Status: Acute Code(s): D62 - ACUTE POSTHEMORRHAGIC ANEMIA SNOMED Code(s): 275877279 (2) Melena Current Visit: Yes Status: Acute Code(s): K92.1 - MELENA SNOMED Code(s): 7675833 Plan: supportive care Continue to monitor hemoglobin and hematocrit and transfuse as needed Continue twice a day Protonix Nothing by mouth after midnight Plan for upper endoscopy tomorrow for further evaluation Avoid NSAID use thank you for allowing us to participate in the care of the patient we will continue to follow
[2020-08-11] MEDS: LACTATED RINGERS 1,000 ML IV SCH (05:38)
[2020-08-11] MEDS ORDERED: fentaNYL (PF) 50 MCG/ML 2 ML AMP IV PRN (06:00)
[2020-08-11] MEDS ORDERED: fentaNYL (PF) 50 MCG/ML 2 ML AMP IVP PRN (06:00)
[2020-08-11] MEDS ORDERED: MIDAZOLAM 2 MG/2 ML VIAL IV PRN (06:00)
--- NOTE | 2020-08-11 07:48 | ECHOF ---
Referral Reason:syncope MEASUREMENTS -------- HEIGHT: 157.5 cm WEIGHT: 64.0 kg BP: 122/65 IVSd: 1.1 cm (0.6 - 1.1) LVIDd: 4.9 cm (3.9 - 5.3) LVPWd: 0.9 cm (0.6 - 1.1) IVSs: 1.5 cm LVIDs: 2.2 cm LVPWs: 1.5 cm LA Diam: 3.4 cm (2.7 - 3.8) RVIDd: 2.8 cm (< 3.3) LAESV Index (A-L): 25.14 ml/m Ao Diam: 2.9 cm (2.0 - 3.7) AV Cusp: 1.8 cm (1.5 - 2.6) EPSS: 0.4 cm MV E Ascencion: 0.82 m/s MV DecT: 228 ms MV A Ascencion: 1.23 m/s MV E/A Ratio: 0.67 AV maxP.51 mmHg AV meanP.65 mmHg RAP: 5.00 mmHg RVSP: 36.46 mmHg MV EF SLOPE: 34.31 mm/s (70 - 150) MV EXCURSION: 10.74 mm (> 18.000) FINDINGS -------- Sinus rhythm. This was a technically good study. The left ventricular size is normal. There is borderline concentric left ventricular hypertrophy. Overall left ventricular systolic function is normal with, an EF between 60 - 65 %. The right ventricle is normal in size. Normal LA size by volume 22+/-6 ml/m2. The right atrium is normal in size. Interatrial and interventricular septum intact. There is mild aortic valve sclerosis. LVOT obstruction with mean gradient of 14 mm/Hg and max gradi ent of 26 mm/Hg There is trace to mild mitral regurgitation. Mild tricuspid regurgitation present. There is mild pulmonary hypertension. The right ventricular systolic pressure, as measured by Doppler, is 36.46mmHg. Trace/mild (physiologic) pulmonic regurgitation. The aortic root size is normal. Normal inferior vena cava with normal inspiratory collapse consistent with estimated right atrial pre ssure of 5 mmHg. There is no pericardial effusion. CONCLUSIONS -------- 1. The left ventricular size is normal. 2. There is borderline concentric left ventricular hypertrophy. 3. Overall left ventricular systolic function is normal with, an EF between 60 - 65 %. 4. There is mild aortic valve sclerosis. 5. LVOT obstruction with mean gradient of 14 mm/Hg and max gradient of 26 mm/Hg 6. There is trace to mild mitral regurgitation. 7. Mild tricuspid regurgitation present. 8. There is mild pulmonary hypertension. 9. The right ventricular systolic pressure, as measured by Doppler, is 36.46mmHg. 10. Trace/mild (physiologic) pulmonic regurgitation. 11. There is no pericardial effusion. TRANSMISSION TECHNICIAN: Franchesca Albert RDCS
[2020-08-11 07:51] LABS: HGB 7.3 gm/dL (11.4-16.0); MCH 27.9 pg (25.0-35.0); MCV 87.3 fL (80.0-100.0); Mean Platelet Volume 7.1; Platelet Count 175 k/uL (150-450); RBC 2.63 m/uL (3.80-5.40); WBC 8.6 k/uL (3.8-10.6)
[2020-08-11] MEDS: SYMBICORT 160-4.5 MCG INHALER INHALATION SCH ×2 (09:29→20:48)
[2020-08-11] MEDS: IPRATROPIUM-ALBUTEROL 3 ML NEB INHALATION SCH ×4 (09:33→20:48)
[2020-08-11 10:23] LABS: Potassium 4.5 mmol/L (3.5-5.1)
--- NOTE | 2020-08-11 12:00 | P.PN ---
Subjective Progress Note Date: 08/11/20 This is a 70-year-old female with history of hypertension, hyperlipidemia, osteoarthritis, COPD, who was admitted to the hospital after experiencing a syncopal episode. According to the patient, she also had been having frequent diarrhea stools at home which were black in color. She was seen in consultation yesterday by Dr. Mckeon, was felt that the patient's syncope was likely secondary to dehydration. She had an echocardiogram with Doppler study performed which revealed an ejection fraction of 60-65%. LVOT obstruction with a mean gradient of 14 and a max gradient of 26 was noted. Blood pressure 120/60 with a heart rate in the 70s, 100% on room air. White blood cell count 8.6, hemoglobin today 7.3, platelet count 175. Sodium 141, potassium 4.5, BUN 29, creatinine 1.3. The creatinine is down from 1.7 from yesterday. She does overall feel better today, denies any dizziness or lightheadedness. She is scheduled today to undergo an EGD. Objective - Vital Signs Vital signs: Vital Signs Temp 98.2 F 08/11/20 09:15 Pulse 70 08/11/20 09:15 Resp 16 08/11/20 09:15 BP 121/69 08/11/20 09:15 Pulse Ox 100 08/11/20 09:15 Intake & Output 08/10/20 08/11/20 08/11/20 18:59 06:59 18:59 Intake Total 400 Balance 400 Weight 64.7 kg Intake: Oral 400 Other: Voiding Method Toilet # Voids 1 1 # Bowel Movements 0 - Exam PHYSICAL EXAMINATION: GENERAL: 70-year-old female in no acute distress at the time of my examination HEENT: Head is atraumatic, normocephalic. Pupils equal, round. Sclera anicteric. Conjunctiva are clear. Mucous membranes of the mouth are moist. Neck is supple. There is no elevated jugular venous pressure. No carotid bruit is heard. HEART EXAMINATION: Heart S1, S2 normal. No murmur or gallop heard. CHEST EXAMINATION: Lungs are clear to auscultation and precussion. No chest wall tenderness is noted on palpation or with deep breathing. ABDOMEN: Soft, nontender. Bowel sounds are heard. No organomegaly noted. EXTREMITIES: 2+ peripheral pulses with no evidence of peripheral edema and no calf tenderness noted. NEUROLOGIC patient is awake, alert and oriented 3 . . - Labs CBC & Chem 7: 08/11/20 07:30 08/11/20 07:30 Labs: Abnormal Lab Results - Last 24 Hours (Table) 08/11/20 08/11/20 Range/Units 07:30 07:30 RBC 2.63 L (3.80-5.40) m/uL Hgb 7.3 L (11.4-16.0) gm/dL Hct 23.0 L (34.0-46.0) % Chloride 112 H (98-107) mmol/L BUN 29 H (7-17) mg/dL Creatinine 1.39 H (0.52-1.04) mg/dL Calcium 8.0 L (8.4-10.2) mg/dL Assessment and Plan Plan: Assessment and plan #1 syncope, likely secondary to anemia, dehydration, and hypotension #2 acute blood loss anemia, patient scheduled for EGD today, hemoglobin 7.3 #3 hyperlipidemia Plan Echocardiogram with Doppler study was performed which revealed a normal left ventricular systolic function with evidence of LVOT obstruction with a mean gradient of 14 and a max gradient of 26. Scheduled for an EGD today, further recommendations to follow. DNP note has been reviewed, I agree with a documented findings and plan of care. Patient was seen and examined.
[2020-08-11] MEDS: PANTOPRAZOLE 40 MG/10 ML VIAL IVP SCH ×2 (12:48→20:46)
[2020-08-11] MEDS ORDERED: MIDAZOLAM 2 MG/2 ML VIAL ONE (13:46)
[2020-08-11] MEDS ORDERED: PROPOFOL 10 MG/ML 20 ML VIAL IV ONE (13:46)
[2020-08-11] MEDS ORDERED: LIDOCAINE 1% INJ 10MG/ML (20 ML MDV) ONE (13:46)
[2020-08-11] MEDS ORDERED: IV FLUID CONTINUATION 1,000 ML IV ONE (13:47)
--- NOTE | 2020-08-11 14:07 | P.PCN ---
Date of Procedure: 08/11/20 Description of Procedure: BRIEF HISTORY: 70-year-old female with a medical history significant for hypertension, COPD, osteoarthritis and hyperlipidemia who presented to the hospital due to weakness and a fall. Patient reports a mechanical fall prior to presentation and is currently being evaluated by the cardiology service. She also reported multiple episodes of loose dark colored stool prior to presentation. She reports that this has been occurring over the pastfew days with the bowel movements described as nonbloody but dark in color. She reports approximately 3-4 episodes total. No abdominal pain reported. She does report a history ofiron deficiency in the past and iron supplementation. She was found to be anemic on presentation and transfuse 1 unit of packed red blood cells with her hemoglobin currently 7.8 status post transfusion. She relates her last colonoscopy was 7 years ago at which time she was told it was normal and shehad repeat her screening colonoscopy in 10 years. She does report occasional use of Excedrin with states that she does not take this daily. She believes she has a remote history of peptic ulcer disease.. PROCEDURE PERFORMED: Esophagogastroduodenoscopy with biopsy. PREOPERATIVE DIAGNOSIS: Melena, anemia of acute blood loss. ESTIMATED BLOOD LOSS: Minimal. IV sedation per anesthesia. PROCEDURE: After informed consent was obtained, the patient was brought into the endoscopy unit. IV sedation was administered by Anesthesia under continuous monitoring. Initially the Olympus GIF-190 video endoscope was inserted into the mouth. Esophagus intubated without any difficulty. It was gradually advanced into the stomach and duodenum and carefully examined. The bulb and the second part of the duodenum appeared normal, with biopsies taken. The scope at this time was withdrawn to the stomach, adequately insufflated with air, and upon careful examination, mucosa of the antrum, body, cardia and the fundus appeared normal, with biopsies taken of antrum and body. The scope was then withdrawn into the esophagus. The GE junction was located at 34 cm from the incisors, with a 6 cm hiatal hernia noted. 4 cm of LA grade D distal esophagitis with biopsies of the distal esophagus biopsied. The esophagus appeared otherwise appeared normal. There were no erosions or ulcerations seen and the patient tolerated the procedure well. IMPRESSION: 1. LA grade D esophagitis. 2. Large hiatal hernia. 3. Biopsies of the duodenum, antrum and body and distal esophagus. RECOMMENDATIONS: The findings of this examination were discussed with the patient.. Continue Protonix twice daily. Will add Carafate 4 times a day. Await pathology from biopsies. Resume diet. Continue to monitor H&H and transfuse as needed
[2020-08-11] MEDS: ATORVASTATIN 20 MG TAB PO SCH (17:18)
[2020-08-11] MEDS: SUCRALFATE 1 GM TAB PO SCH ×2 (17:18→20:45)
--- NOTE | 2020-08-11 23:38 | P.PN ---
Subjective Progress Note Date: 08/10/20 Principal diagnosis: GI Bleed / Melena Patient is a 70-year-old female with a known history of hypertension, hyperlipidemia, osteoarthritis, COPD and previous history of H1N1 pneumonia in 2008 was on mechanical ventilator presents to ER with complaints of diarrhea, generalized weakness and fall today morning. Patient states that since yesterday she has been having diarrhea 3-4 times with dark-colored stools. Today morning when she was going to the bathroom she felt suddenly dizzy and had a syncopal episode and fell on the door. Patient is also complaining of nausea. No episodes of vomiting. No chest pain or shortness of breath. No fever no chills. Denies any history of GI bleed in the past. Laboratory data showed WBC 25.7, hemoglobin 8.9 and neutrophils 22.5 BUN 104 and creatinine 2.36 Lactic acid 5.3 Troponin 0 0.037 and proBNP 961 TSH 1.42 Chest x-ray showed chronic interstitial density left lower lobe consistent with scarring and fibrosis. No significant change compared to old exam. Urinalysis is negative for infection. CT head and cervical spine was done which showed no acute fracture or dislocation evident in the cervical spine. No acute intracranial hemorrhage, mass-effect, midline shift. EKG showed sinus tachycardia 08/10/2020 Patient is currently lying in the bed comfortably. Denies any complaints of dark-colored stools. Hemoglobin is 7.8 today. Other laboratory data showed BUN 57 and creatinine improved to 1.73 Patient is being continued on PPI and IV hydration. Gastroenterology is planning for EGD tomorrow. 2D echocardiogram showed ejection fraction 60 to 65% and LVOT obstruction with mean gradient of 14 and maximum gradient of 26 mmHg. Mild pulmonary hypertension. Cardiology and GI is following. Current medications reviewed. Objective - Vital Signs Vital signs: Vital Signs Temp 98 F 08/10/20 11:40 Pulse 80 08/10/20 11:41 Resp 18 08/10/20 11:40 BP 132/66 08/10/20 11:40 Pulse Ox 100 08/10/20 11:40 Intake & Output 08/09/20 08/10/20 08/10/20 18:59 06:59 18:59 Intake Total 310 400 Output Total 450 Balance 310 -450 400 Weight 63.503 kg 64.3 kg Intake: Oral 400 Blood Product 310 Rc Cpda-1 Unit 310 [id number] Output: Urine 450 Other: Voiding Method Toilet # Voids 1 # Bowel Movements 0 - Exam PHYSICAL EXAMINATION: Patient is lying in the bed comfortably, no acute distress, awake alert and oriented.. HEENT: Normocephalic. Neck is supple. Pupils reactive. Nostrils clear. Oral cavity is moist. Ears reveal no drainage. Neck reveals no JVD, carotid bruits, or thyromegaly. CHEST EXAMINATION: Trachea is central. Symmetrical expansion. Lung cote clear to auscultation and percussion. CARDIAC: Normal S1, S2 with no gallops. No murmurs ABDOMEN: Soft. Bowel sounds normal. No organomegaly. No abdominal bruits. Extremities: reveal no edema. No clubbing or cyanosis Neurologically awake, alert, oriented x3 with well-coordinated movements. No focal deficits noted Skin: No rash or skin lesions. Psychiatric: Coperative. Nonsuicidal Musculoskeletal: No joint swelling or deformity. Normal range of motion. - Labs CBC & Chem 7: 08/11/20 07:30 08/11/20 07:30 Labs: Abnormal Lab Results - Last 24 Hours (Table) 08/09/20 08/09/20 08/09/20 Range/Units 10:39 13:27 20:55 WBC 17.3 H (3.8-10.6) k/uL RBC 2.83 L (3.80-5.40) m/uL Hgb 7.9 L (11.4-16.0) gm/dL Hct 24.4 L (34.0-46.0) % Neutrophils # (1.3-7.7) k/uL Chloride (98-107) mmol/L BUN (7-17) mg/dL Creatinine (0.52-1.04) mg/dL Glucose (74-99) mg/dL Calcium (8.4-10.2) mg/dL Urine Blood Trace H (Negative) Urine Mucus Rare H (None) /hpf Crossmatch See Detail 08/10/20 08/10/20 Range/Units 07:54 07:54 WBC (3.8-10.6) k/uL RBC 2.76 L (3.80-5.40) m/uL Hgb 7.8 L (11.4-16.0) gm/dL Hct 23.7 L (34.0-46.0) % Neutrophils # 8.3 H (1.3-7.7) k/uL Chloride 110 H (98-107) mmol/L BUN 57 H (7-17) mg/dL Creatinine 1.73 H (0.52-1.04) mg/dL Glucose 107 H (74-99) mg/dL Calcium 7.9 L (8.4-10.2) mg/dL Urine Blood (Negative) Urine Mucus (None) /hpf Crossmatch Assessment and Plan Assessment: Acute syncopal episode/status post fall with laceration on the forehead. Likely due to volume depletion and GI bleed Acute blood loss anemia secondary to GI bleed Diarrhea dark-colored stools Acute kidney injury with creatinine 2.36 and significant prerenal azotemia with GI bleed. Severe lactic acidosis. Improved now Leukocytosis without evidence of infection. Chest x-ray and UA negative. Likely reactive. Mild elevated troponin level possible demand mismatch. Hypertension Hyperlipidemia COPD History of H1N1 pneumonia DVT prophylaxis with SCDs Plan: Patient is on IV hydration with normal saline. Monitor electrolytes. And renal function. Continue with Protonix IV twice daily and GI was consulted. EGD tomorrow. Monitor H&H and transfuse if the hemoglobin level is less than 7. Continue to follow closely. Cardiology was consulted as well for elevated troponin level. TTE showed normal EF Further recommendations based on the clinical course. Prognosis is guarded at this time. Time with Patient: Greater than 30
[2020-08-11] MEDS: MONTELUKAST 10 MG TAB PO SCH (23:43)
--- NOTE | 2020-08-11 23:46 | P.PN ---
Subjective Progress Note Date: 08/11/20 Principal diagnosis: GI Bleed / Melena Patient is a 70-year-old female with a known history of hypertension, hyperlipidemia, osteoarthritis, COPD and previous history of H1N1 pneumonia in 2009 was on mechanical ventilator presents to ER with complaints of diarrhea, generalized weakness and fall today morning. Patient states that since yesterday she has been having diarrhea 3-4 times with dark-colored stools. Today morning when she was going to the bathroom she felt suddenly dizzy and had a syncopal episode and fell on the door. Patient is also complaining of nausea. No episodes of vomiting. No chest pain or shortness of breath. No fever no chills. Denies any history of GI bleed in the past. Laboratory data showed WBC 25.7, hemoglobin 8.9 and neutrophils 22.5 BUN 104 and creatinine 2.36 Lactic acid 5.3 Troponin 0 0.037 and proBNP 961 TSH 1.42 Chest x-ray showed chronic interstitial density left lower lobe consistent with scarring and fibrosis. No significant change compared to old exam. Urinalysis is negative for infection. CT head and cervical spine was done which showed no acute fracture or dislocation evident in the cervical spine. No acute intracranial hemorrhage, mass-effect, midline shift. EKG showed sinus tachycardia 08/10/2020 Patient is currently lying in the bed comfortably. Denies any complaints of dark-colored stools. Hemoglobin is 7.8 today. Other laboratory data showed BUN 57 and creatinine improved to 1.73 Patient is being continued on PPI and IV hydration. Gastroenterology is planning for EGD tomorrow. 2D echocardiogram showed ejection fraction 60 to 65% and LVOT obstruction with mean gradient of 14 and maximum gradient of 26 mmHg. Mild pulmonary hypertension. Cardiology and GI is following. 06/10/2020. Patient is status post EGD. 1. LA grade D esophagitis. 2. Large hiatal hernia. 3. Biopsies of the duodenum, antrum and body and distal esophagus. Hemoglobin level is 7.3 today. Continue Protonix and added Carafate. GI is following. Monitor H&H tomorrow. Currently patient denies any abdominal pain. No bowel movement today where was. No chest pain or shortness of breath. Current medications reviewed. Objective - Vital Signs Vital signs: Vital Signs Temp 98.1 F 08/11/20 21:00 Pulse 84 08/11/20 21:02 Resp 16 09/23/20 21:00 BP 122/67 08/11/20 21:00 Pulse Ox 99 08/11/20 21:00 Intake & Output 08/11/20 08/11/20 08/12/20 06:59 18:59 06:59 Intake Total 900 Balance 900 Weight 64.7 kg Intake: IV 300 Oral 600 Other: Voiding Method Toilet Toilet # Voids 1 2 # Bowel Movements 1 - Exam PHYSICAL EXAMINATION: Patient is lying in the bed comfortably, no acute distress, awake alert and oriented.. HEENT: Normocephalic. Neck is supple. Pupils reactive. Nostrils clear. Oral cavity is moist. Ears reveal no drainage. Neck reveals no JVD, carotid bruits, or thyromegaly. CHEST EXAMINATION: Trachea is central. Symmetrical expansion. Lung cote clear to auscultation and percussion. CARDIAC: Normal S1, S2 with no gallops. No murmurs ABDOMEN: Soft. Bowel sounds normal. No organomegaly. No abdominal bruits. Extremities: reveal no edema. No clubbing or cyanosis Neurologically awake, alert, oriented x3 with well-coordinated movements. No focal deficits noted Skin: No rash or skin lesions. Psychiatric: Coperative. Nonsuicidal Musculoskeletal: No joint swelling or deformity. Normal range of motion. - Labs CBC & Chem 7: 08/11/20 07:30 08/11/20 07:30 Labs: Abnormal Lab Results - Last 24 Hours (Table) 08/11/20 08/11/20 Range/Units 07:30 07:30 RBC 2.63 L (3.80-5.40) m/uL Hgb 7.3 L (11.4-16.0) gm/dL Hct 23.0 L (34.0-46.0) % Chloride 112 H (98-107) mmol/L BUN 29 H (7-17) mg/dL Creatinine 1.39 H (0.52-1.04) mg/dL Calcium 8.0 L (8.4-10.2) mg/dL Assessment and Plan Assessment: Acute syncopal episode/status post fall with laceration on the forehead. Likely due to volume depletion and GI bleed Acute blood loss anemia secondary to GI bleed Diarrhea dark-colored stools Acute kidney injury with creatinine 2.36 and significant prerenal azotemia with GI bleed. Severe lactic acidosis. Improved now Leukocytosis without evidence of infection. Chest x-ray and UA negative. Likely reactive. Mild elevated troponin level possible demand mismatch. Hypertension Hyperlipidemia COPD History of H1N1 pneumonia DVT prophylaxis with SCDs Plan: Patient is on IV hydration with normal saline. Monitor electrolytes. And renal function. Continue with Protonix IV twice daily and GI was consulted. EGD done today. Monitor H&H and transfuse if the hemoglobin level is less than 7. Continue to follow closely. Cardiology was consulted as well for elevated troponin level. TTE showed normal EF Further recommendations based on the clinical course. Prognosis is guarded at this time. Time with Patient: Greater than 30
[2020-08-12] MEDS: LACTATED RINGERS 1,000 ML IV SCH (06:10)
[2020-08-12] MEDS: SUCRALFATE 1 GM TAB PO SCH ×2 (06:24→12:27)
[2020-08-12 07:53] LABS: Basophils % (A) 0 %; Eosinophils # (A) 0.2 k/uL (0-0.7); Eosinophils % (A) 2 %; HCT 22.5 % (34.0-46.0); HGB 7.3 gm/dL (11.4-16.0); Lymphocytes # (A) 1.4 k/uL (1.0-4.8); Lymphocytes % (A) 14 %; MCH 28.5 pg (25.0-35.0); MCHC 32.5 g/dL (31.0-37.0); MCV 87.6 fL (80.0-100.0); Monocytes # (A) 0.4 k/uL (0-1.0); Monocytes % (A) 4 %; Neutrophils # (A) 7.8 k/uL (1.3-7.7); Neutrophils % (A) 80 %; Platelet Count 178 k/uL (150-450); RBC 2.56 m/uL (3.80-5.40); RDW 15.4 % (11.5-15.5); WBC 9.8 k/uL (3.8-10.6)
[2020-08-12 08:01] LABS: Potassium 4.3 mmol/L (3.5-5.1)
[2020-08-12] MEDS ORDERED: ACETAMINOPHEN TAB 325 MG TAB PO PRN (08:07)
[2020-08-12] MEDS: PANTOPRAZOLE 40 MG/10 ML VIAL IVP SCH (08:16)
[2020-08-12] MEDS: ATORVASTATIN 20 MG TAB PO SCH (08:16)
[2020-08-12] MEDS: SYMBICORT 160-4.5 MCG INHALER INHALATION SCH (08:40)
[2020-08-12] MEDS: IPRATROPIUM-ALBUTEROL 3 ML NEB INHALATION SCH ×2 (08:40→11:59)
--- NOTE | 2020-08-12 09:30 | CDI ---
Documentation Clarification Form Date: 08/12/2020 CDS: Juliana Hernandez RN, CCDS Admit Date: 08/09/2020 Patient Name: Jahaira Andrew ATTENTION: The Clinical Documentation Specialists (CDI) and [facility] Coding Staff appreciate your assistance in clarifying documentation. Please respond to the clarification below the line at the bottom and electronically sign. The CDI & [facility] Coding staff will review the response and follow-up if needed. Please note: Queries are made part of the Legal Health Record. If you have any questions, please contact the author of this message via ITS. Dr. Wilfred Carreon Documentation in the medical record indicates that this patient has been diagnosed as having hypotension. 08/09 at 10:18 blood pressure 51/47 90 16 97.0; 10: 59/45 117 18; 10: 98. Please render your opinion on these findings History/Risk Factors: Asthma, Hyperlipidemia, Hypertension, COPD Clinical Indicators: 70-year-old female present to ED for evaluation of weakness (near syncopal event) and fall. She admits to some recent dark stools and has been vomiting on day of admit. She is alert, orientated x3. 08/09 EKG: Sinus tach @ 104 08/09 Lab findings: WBC 25.7, HGB 8.9, HCT 27.5, BUN 104, Cr 2.36, Lactic Acid 5.3, Phosphorus 6.4, Troponin I 0.037 08/09 @20:00 HGB 7.9, HCT 24.4 08/09 Chest x-ray: Chronic interstitial density left lower lobe consistent with scarring and fibrosis. Vital Signs: 08/09 at 10:18 blood pressure 51/47 90 16 97.0; 10: 59/45 117 18; 10: 36 98 Other Clinical indicators: H/P and subsequent progress note: acute syncopal episode/status post fall with laceration on the forehead. Likely due to volume depletion and GI bleed. Acute blood loss anemia secondary to GI bleed. Acute kidney injury. Treatment: Monitor HGB, HCT Monitor electrolytes and renal function Protonix 40 IV bid Transfuse 1unit PRBC (08/12 hgb 7.3, hct 22.5) .9 NS 500 mls Bolus x2 on 08/09 .9 NS 1000 mls Bolus x2 on 08/09 08/10 Cardiology Consults: Syncope secondary to dehydration and low blood pressure 08/10 GI consult: Anemia associated with acute blood loss Based on your medical judgement could you further clarify in the diagnosis related to these findings such as: Hypotensive Shock Hypovolemic Shock Hypotension without shock (please specify cause) Other, please specify Unable to determine (Last Revision: February 2018) Hypovolemic Shock MTDD
[2020-08-12 09:43] VITALS: PULSE 83; RESP 18
--- NOTE | 2020-08-12 10:30 | CDI ---
Documentation Clarification Form Date: 08/12/2020 CDS: Juliana Hernandez RN, CCDS Admit Date: 08/09/2020 Patient Name: Jahaira Andrew ATTENTION: The Clinical Documentation Specialists (CDI) and [facility] Coding Staff appreciate your assistance in clarifying documentation. Please respond to the clarification below the line at the bottom and electronically sign. The CDI & [facility] Coding staff will review the response and follow-up if needed. Please note: Queries are made part of the Legal Health Record. If you have any questions, please contact the author of this message via ITS. Dr. Wilfred Carreon The patient presented with the following per ED evaluation and H/P: syncopal episode likely due to volume depletion and GI bleed. In your H&P mild elevated troponin level possible demand mismatch. Please further specify the demand mismatch. History/Risk Factors: Asthma, Hyperlipidemia, Hypertension, COPD Clinical Indicators: 70-year-old female present to ED for evaluation of weakness (near syncopal event) and fall. She admits to some recent dark stools and has been vomiting on day of admit. Lab findings: 08/09 Troponin I 0.037, WBC 25.7, HGB 8.9, HCT 27.5, BUN 104, Cr 2.36, Lactic Acid 5.3, Phosphorus 6.4, 08/09 @20:00 HGB 7.9, HCT 24.4 08/09 EKG: Sinus tachycardia vent. Rate 104 Vital Signs: 08/09 at 10:18 blood pressure 51/47 90 16 97.0; 10:31 59/45 117 18; 10: 36 79/98 Treatment: Monitor CBC, Electrolytes .9 NS fluid 500 mls x2, 1000 mls x2 Transfuse 1unit PRBC (08/12 HGB 7.3, HCT 22.5) 08/10 Cardiology Consults: Syncope secondary to dehydration and low blood pressure 08/10 GI consult: Anemia associated with acute blood loss In your professional opinion, can you please clarify Demand Mismatch: Type 2 OH secondary to anemia, (or other please specify) Demand ischemia without OH Other, please specify Unable to determine (Last Revision: February 2018) Demand ischemia without OH MTDD
--- NOTE | 2020-08-12 11:11 | P.PN ---
Subjective Progress Note Date: 08/12/20 This is a 70-year-old female with history of hypertension, hyperlipidemia, osteoarthritis, COPD, who was admitted to the hospital after experiencing a syncopal episode. According to the patient, she also had been having frequent diarrhea stools at home which were black in color. She was seen in consultation yesterday by Dr. Mckeon, was felt that the patient's syncope was likely secondary to dehydration. She had an echocardiogram with Doppler study performed which revealed an ejection fraction of 60-65%. LVOT obstruction with a mean gradient of 14 and a max gradient of 26 was noted. Blood pressure 120/60 with a heart rate in the 70s, 100% on room air. White blood cell count 8.6, hemoglobin today 7.3, platelet count 175. Sodium 141, potassium 4.5, BUN 29, creatinine 1.3. The creatinine is down from 1.7 from yesterday. She does overall feel better today, denies any dizziness or lightheadedness. She is scheduled today to undergo an EGD. 08/12/2020 Patient underwent an EGD yesterday which revealed LA grade D esophagitis, large hiatal hernia, biopsies of the duodenum antrum and body of the distal esophagus were obtained. The patient was seen and examined this morning, she feels much stronger today. Denies any black stool. Blood pressure 144/80 with a heart rate in the 70s to 80s, 100% on room air. Blood cell count 9.8, hemoglobin 7.3, platelet count 178. Sodium 139, potassium 4.3, BUN 18, creatinine 1.1. Objective - Vital Signs Vital signs: Vital Signs Temp 97.6 F 08/12/20 07:45 Pulse 80 08/12/20 08:51 Resp 18 08/12/20 07:45 BP 144/85 08/12/20 07:45 Pulse Ox 100 08/12/20 07:45 Intake & Output 08/11/20 08/12/20 08/12/20 18:59 06:59 18:59 Intake Total 900 240 0 Balance 900 240 0 Weight 62.3 kg Intake: IV 300 Oral 600 240 0 Other: Voiding Method Toilet # Voids 2 1 1 # Bowel Movements 1 - Exam PHYSICAL EXAMINATION: GENERAL: 70-year-old female in no acute distress at the time of my examination HEENT: Head is atraumatic, normocephalic. Pupils equal, round. Sclera an icteric. Conjunctiva are clear. Mucous membranes of the mouth are moist. Neck is supple. There is no elevated jugular venous pressure. No carotid bruit is heard. HEART EXAMINATION: Heart S1, S2 normal. No murmur or gallop heard. CHEST EXAMINATION: Lungs are clear to auscultation and precussion. No chest wall tenderness is noted on palpation or with deep breathing. ABDOMEN: Soft, nontender. Bowel sounds are heard. No organomegaly noted. EXTREMITIES: 2+ peripheral pulses with no evidence of peripheral edema and no calf tenderness noted. NEUROLOGIC patient is awake, alert and oriented 3 . . - Labs CBC & Chem 7: 08/12/20 07:24 08/12/20 07:24 Labs: Abnormal Lab Results - Last 24 Hours (Table) 08/12/20 08/12/20 Range/Units 07:24 07:24 RBC 2.56 L (3.80-5.40) m/uL Hgb 7.3 L (11.4-16.0) gm/dL Hct 22.5 L (34.0-46.0) % Neutrophils # 7.8 H (1.3-7.7) k/uL Chloride 111 H (98-107) mmol/L BUN 18 H (7-17) mg/dL Creatinine 1.16 H (0.52-1.04) mg/dL Calcium 8.0 L (8.4-10.2) mg/dL Assessment and Plan Plan: Assessment and plan #1 syncope, likely secondary to anemia, dehydration, and hypotension #2 acute blood loss anemia #3 hyperlipidemia Plan EGD performed yesterday revealed a revealed LA grade D esophagitis, large hiatal hernia, biopsies were obtained from the duodenum and distal esophagus. From cardiology's perspective, patient may be able to be discharged home once cleared by primary and GI service. A follow-up appointment will be made in the office post discharge. DNP note has been reviewed, I agree with a documented findings and plan of care. Patient was seen and examined.
--- NOTE | 2020-08-12 12:20 | P.PN ---
Subjective Progress Note Date: 08/12/20 Principal diagnosis: Fall, weakness, melena Assessment pleasant 70-year-old female who presented to the hospital for a mechanical fall. She also reported multiple episodes of loose dark stool prior to presentation. He underwent an EGD yesterday which showed a grade D esophagit is and a large hiatal hernia. Biopsies were taken. This morning the patient states she has not had a bowel movement, but denies any rectal bleeding. She denies any abdominal pain, nausea, or vomiting. She states she is feeling better, weakness has improved. Today's hemoglobin is stable from yesterday at 7.3. Cardiology is also following the patient. Objective - Vital Signs Vital signs: Vital Signs Temp 97.6 F 08/12/20 07:45 Pulse 80 08/12/20 08:51 Resp 18 08/12/20 07:45 BP 144/85 08/12/20 07:45 Pulse Ox 100 08/12/20 07:45 Intake & Output 08/11/20 08/12/20 08/12/20 18:59 06:59 18:59 Intake Total 900 240 0 Balance 900 240 0 Weight 62.3 kg Intake: IV 300 Oral 600 240 0 Other: Voiding Method Toilet # Voids 2 1 1 # Bowel Movements 1 - Exam General appearance: The patient is alert, oriented, in no acute distress. HET: Head is normocephalic and with laceration to forehead. Neck: Supple without lymphadenopathy. Trachea midline. Abdomen: Soft, nontender, nondistended with bowel sounds. Extremities: Normal skin color and turgor. No pedal edema. Neurological: No focal deficits. Alert and oriented 3. - Labs CBC & Chem 7: 08/12/20 07:24 08/12/20 07:24 Labs: Abnormal Lab Results - Last 24 Hours (Table) 08/12/20 08/12/20 Range/Units 07:24 07:24 RBC 2.56 L (3.80-5.40) m/uL Hgb 7.3 L (11.4-16.0) gm/dL Hct 22.5 L (34.0-46.0) % Neutrophils # 7.8 H (1.3-7.7) k/uL Chloride 111 H (98-107) mmol/L BUN 18 H (7-17) mg/dL Creatinine 1.16 H (0.52-1.04) mg/dL Calcium 8.0 L (8.4-10.2) mg/dL Assessment and Plan (1) Anemia associated with acute blood loss Narrative/Plan: 70-year-old female with multiple medical comorbidities presenting to the hospital due to mechanical fall, weakness and dark-colored stool. She reports a remote history of peptic ulcer disease and states her last colonoscopy was 7 years ago. She had been having somedark loose bowel movements prior to presentation proximally for episodes. No abdominal pain reported. She does report occasional use of Excedrin. Patient was noted to haveelevatedBUN to crea tinine ratio on presentation suggestive of upper GI bleed. Differential includes, peptic ulcer disease, erosive gastritis or esophagitis, AVM or other etiology. Status: Acute Code(s): D62 - ACUTE POSTHEMORRHAGIC ANEMIA SNOMED Code(s): 997547573 (2) Melena Status: Acute Code(s): K92.1 - MELENA SNOMED Code(s): 4804139 Plan: supportive care Continue to monitor hemoglobin and hematocrit and transfuse as needed Continue twice a day Protonix Carafate 4 times a day ordered Upper endoscopy showed a grade D esophagitis and large hiatal hernia Avoid NSAID use Discussed with patient to avoid eating late at night before bed Follow-up as an outpatient to review biopsy results thank you for allowing us to participate in the care of the patient we will continue to follow The above dictated assessment and findings were discussed with Dr. Pan. The impression and plan of care have been directed as dictated.
[2020-08-12 13:22] VITALS: BP 144/75; TEMP 97.7
--- NOTE | 2020-08-26 11:41 | P.DS ---
Providers Date of admission: 08/09/20 13:50 Expected date of discharge: 08/12/20 Attending physician: Sepideh Mayer Consults: 08/09/20 13:50 Consult Physician Routine Consulting Provider: Mc Crystal Consult Reason/Comments: syncope Do you want consulting provider notified?: Yes Consult Physician Routine Consulting Provider: Miquel Pan Consult Reason/Comments: gib Do you want consulting provider notified?: Yes Primary care physician: Yoni Wang Hospital Course: Discharge diagnosis Acute syncopal episode/status post fall with laceration on the forehead. Likely due to volume depletion and GI bleed Acute blood loss anemia secondary to GI bleed1. LA grade D esophagitis. Large hiatal hernia. Diarrhea dark-colored stools Acute kidney injury with creatinine 2.36 and significant prerenal azotemia with GI bleed. Severe lactic acidosis. Improved now Leukocytosis without evidence of infection. Chest x-ray and UA negative. Likely reactive. Mild elevated troponin level possible demand mismatch. Hypertension Hyperlipidemia COPD History of H1N1 pneumonia DVT prophylaxis with [facility] Hospital course. Patient is a 70-year-old female with a known history of hypertension, hyperlipidemia, osteoarthritis, COPD and previous history of H1N1 pneumonia in 2008 was on mechanical ventilator presents to ER with complaints of diarrhea, generalized weakness and fall today morning. Patient states that since yesterday she has been having diarrhea 3-4 times with dark-colored stools. Today morning when she was going to the bathroom she felt suddenly dizzy and had a syncopal episode and fell on the door. Patient is also complaining of nausea. No episodes of vomiting. No chest pain or shortness of breath. No fever no chills. Denies any history of GI bleed in the past. Laboratory data showed WBC 25.7, hemoglobin 8.9 and neutrophils 22.5 BUN 104 and creatinine 2.36 Lactic acid 5.3 Troponin 0 0.037 and proBNP 961 TSH 1.42 Chest x-ray showed chronic interstitial density left lower lobe consistent with scarring and fibrosis. No significant change compared to old exam. Urinalysis is negative for infection. CT head and cervical spine was done which showed no acute fracture or dislocation evident in the cervical spine. No acute intracranial hemorrhage, mass-effect, midline shift. EKG showed sinus tachycardia 08/10/2020 Patient is currently lying in the bed comfortably. Denies any complaints of dark-colored stools. Hemoglobin is 7.8 today. Other laboratory data showed BUN 57 and creatinine improved to 1.73 Patient is being continued on PPI and IV hydration. Gastroenterology is planning for EGD tomorrow. 2D echocardiogram showed ejection fraction 60 to 65% and LVOT obstruction with mean gradient of 14 and maximum gradient of 26 mmHg. Mild pulmonary hypertension. Cardiology and GI is following. 08/11/2020. Patient is status post EGD. 1. LA grade D esophagitis. 2. Large hiatal hernia. 3. Biopsies of the duodenum, antrum and body and distal esophagus. Hemoglobin level is 7.3 today. Continue Protonix and added Carafate. GI is following. Monitor H&H tomorrow. Currently patient denies any abdominal pain. No bowel movement today where was. No chest pain or shortness of breath. 08/12/2020 Patient is currently lying in bed comfortably. No complaints of chest pain or shortness of breath. Hemoglobin is stable at 7.3 today. Patient will be continued on Protonix and Carafate. Patient did have regular bowel movement without any blood or dark-colored stool today. Patient is being discharged home and follow-up with GI and primary care physician to follow-up on the biopsy reports. No complaints of dizziness or lightheadedness. Symptomatically much improved and is being discharged home today. PHYSICAL EXAMINATION: Patient is lying in the bed comfortably, no acute distress, awake alert and oriented.. HEENT: Normocephalic. Neck is supple. Pupils reactive. Nostrils clear. Oral cavity is moist. Ears reveal no drainage. Neck reveals no JVD, carotid bruits, or thyromegaly. CHEST EXAMINATION: Trachea is central. Symmetrical expansion. Lung cote clear to auscultation and percussion. CARDIAC: Normal S1, S2 with no gallops. No murmurs ABDOMEN: Soft. Bowel sounds normal. No organomegaly. No abdominal bruits. Extremities: reveal no edema. No clubbing or cyanosis Neurologically awake, alert, oriented x3 with well-coordinated movements. No focal deficits noted Skin: No rash or skin lesions. Psychiatric: Coperative. Nonsuicidal Musculoskeletal: No joint swelling or deformity. Normal range of motion. Vital Signs Temp 97.6 F 08/12/20 07:45 Pulse 80 08/12/20 08:51 Resp 18 08/12/20 07:45 BP 144/85 08/12/20 07:45 Pulse Ox 100 08/12/20 07:45 Intake & Output 08/11/20 08/12/20 08/12/20 18:59 06:59 18:59 Intake Total 900 240 0 Balance 900 240 0 Weight 62.3 kg Intake: IV 300 Oral 600 240 0 Other: Voiding Method Toilet # Voids 2 1 1 # Bowel Movements 1 Patient Condition at Discharge: Fair Plan - Discharge Summary Discharge Rx Participant: No New Discharge Prescriptions: New Sucralfate [Carafate] 1 gm PO ACHS 30 Days #60 tab Pantoprazole Sodium [Protonix] 40 mg PO AC-BID 30 Days #60 tablet. Continue Montelukast [Singulair] 10 mg PO HS Cholecalciferol [Vitamin D3 (25 Mcg = 1000 Iu)] 2,000 unit PO DAILY Atorvastatin [Lipitor] 20 mg PO DAILY Budesonide/Formoterol Fumarate [Symbicort 160-4.5 Mcg Inhaler] 2 puff INHALATION RT-BID Ipratropium-Albuterol Nebulize [Duoneb 0.5 mg-3 mg/3 ml Soln] 3 ml INHALATION RT-QID ampul.neb SUMAtriptan [Sumatriptan] 1 spray NASAL BID PRN PRN Reason: Migraine Headache Olmesartan Medoxomil 40 mg PO DAILY Denosumab [Prolia] 60 mg SQ Q180D Multivit-Min/FA/Lycopen/Lutein [Centrum Silver Tablet] 1 tab PO DAILY Hydrochlorothiazide 12.5mg Tab 12.5 mg PO DAILY Levocetirizine Dihydrochloride [Xyzal] 5 mg PO DAILY PRN PRN Reason: Allergy Symptoms Discharge Medication List Atorvastatin [Lipitor] 20 mg PO DAILY 09/26/14 [History] Cholecalciferol [Vitamin D3 (25 Mcg = 1000 Iu)] 2,000 unit PO DAILY 09/26/14 [History] Montelukast [Singulair] 10 mg PO HS 09/26/14 [History] Budesonide/Formoterol Fumarate [Symbicort 160-4.5 Mcg Inhaler] 2 puff INHALATION RT-BID 05/19/15 [History] Ipratropium-Albuterol Nebulize [Duoneb 0.5 mg-3 mg/3 ml Soln] 3 ml INHALATION RT-QID ampul.neb 05/20/15 [Rx] Denosumab [Prolia] 60 mg SQ Q180D 08/09/20 [History] Hydrochlorothiazide 12.5mg Tab 12.5 mg PO DAILY 08/09/20 [History] Levocetirizine Dihydrochloride [Xyzal] 5 mg PO DAILY PRN 08/09/20 [History] Multivit-Min/FA/Lycopen/Lutein [Centrum Silver Tablet] 1 tab PO DAILY 08/09/20 [History] Olmesartan Medoxomil 40 mg PO DAILY 08/09/20 [History] SUMAtriptan [Sumatriptan] 1 spray NASAL BID PRN 08/09/20 [History] Pantoprazole Sodium [Protonix] 40 mg PO AC-BID 30 Days #60 tablet. 08/12/20 [Rx] Sucralfate [Carafate] 1 gm PO ACHS 30 Days #60 tab 08/12/20 [Rx] Follow up Appointment(s)/Referral(s): Yoni Wang DO [Primary Care Provider] - 08/18/20 3:45 pm (WILL BE SEEING PAUL HURT NP) Miquel Pan MD [STAFF PHYSICIAN] - 08/19/20 11:30 am (WILL BE SEEING STEVE MURDOCK ) Patient Instructions/Handouts: Dehydration (DC), Syncope (DC), Anemia (DC) Discharge Disposition: HOME SELF-CARE
== END 2020-08-12 13:45 | disposition home or self-care (01) | DRG 377 ==
LOC: EC 10:17 → 3SCARD 13:50
PROVIDERS: ADMIT Hospitalist; ATTEND Hospitalist
PROC: 30233N1 Transfusion of Nonautologous Red Blood Cells into Peripheral Vein, Percutaneous Approach (ICD-10-PCS; 2020-08-09)
PROC: 0DB78ZX Excision of Stomach, Pylorus, Via Natural or Artificial Opening Endoscopic, Diagnostic (ICD-10-PCS; principal; 2020-08-11 12:30)
PROC: 0DB38ZX Excision of Lower Esophagus, Via Natural or Artificial Opening Endoscopic, Diagnostic (ICD-10-PCS; principal; 2020-08-11 12:30)
PROC: 0DB98ZX Excision of Duodenum, Via Natural or Artificial Opening Endoscopic, Diagnostic (ICD-10-PCS; principal; 2020-08-11 12:30)
DX: K92.1 Melena (principal); R57.1 Hypovolemic shock; D62 Acute posthemorrhagic anemia; N17.9 Acute kidney failure, unspecified; E87.2 Acidosis; I24.8 Other forms of acute ischemic heart disease; I27.20 Pulmonary hypertension, unspecified; J44.9 Chronic obstructive pulmonary disease, unspecified; I11.9 Hypertensive heart disease without heart failure; K20.9 Esophagitis, unspecified; K44.9 Diaphragmatic hernia without obstruction or gangrene; E86.0 Dehydration; S01.81XA Laceration without foreign body of other part of head, initial encounter; D72.829 Elevated white blood cell count, unspecified; G43.909 Migraine, unspecified, not intractable, without status migrainosus; E78.5 Hyperlipidemia, unspecified; M81.0 Age-related osteoporosis without current pathological fracture; M19.90 Unspecified osteoarthritis, unspecified site; Z79.51 Long term (current) use of inhaled steroids; Z79.899 Other long term (current) drug therapy; Z87.11 Personal history of peptic ulcer disease; Z86.14 Personal history of Methicillin resistant Staphylococcus aureus infection; Z90.49 Acquired absence of other specified parts of digestive tract; Z87.19 Personal history of other diseases of the digestive system; Z90.710 Acquired absence of both cervix and uterus; Z90.89 Acquired absence of other organs; Z98.51 Tubal ligation status; Z98.891 History of uterine scar from previous surgery; Z87.42 Personal history of other diseases of the female genital tract; Z86.19 Personal history of other infectious and parasitic diseases; Z87.39 Personal history of other diseases of the musculoskeletal system and connective tissue; Z87.2 Personal history of diseases of the skin and subcutaneous tissue; Z87.448 Personal history of other diseases of urinary system; Z87.09 Personal history of other diseases of the respiratory system; Z98.890 Other specified postprocedural states; Z91.011 Allergy to milk products; Z88.0 Allergy status to penicillin; Z91.013 Allergy to seafood; Z91.018 Allergy to other foods; Z91.048 Other nonmedicinal substance allergy status; W18.30XA Fall on same level, unspecified, initial encounter; Z82.49 Family history of ischemic heart disease and other diseases of the circulatory system; Z83.49 Family history of other endocrine, nutritional and metabolic diseases
CPT/HCPCS: 36415; 36430; 43239; 70450; 71045; 72125; 80048; 80053; 81001; 82550; 82607; 82728; 82746; 83540; 83550; 83605; 83735; 83880; 84100; 84443; 84484; 85025; 85027; 85610; 85730; 86850; 86900; 86901; 86920; 88305; 88312; 93005; 93306; 94640; 94760; 96361; 96374; 96375; 99285

== ENCOUNTER → 2020-08-18 | Outpatient (CLI) | payer MEDICARE ==
[2020-08-18 17:02] LABS: Basophils % (A) 0 %; Eosinophils # (A) 0.2 k/uL (0-0.7); Eosinophils % (A) 3 %; HCT 27.5 % (34.0-46.0); Hypochromasia Slight; Lymphocytes # (A) 1.3 k/uL (1.0-4.8); Lymphocytes % (A) 19 %; MCH 27.9 pg (25.0-35.0); MCHC 32.1 g/dL (31.0-37.0); MCV 86.9 fL (80.0-100.0); Mean Platelet Volume 6.3; Monocytes # (A) 0.4 k/uL (0-1.0); Monocytes % (A) 6 %; Neutrophils # (A) 5.2 k/uL (1.3-7.7); Neutrophils % (A) 71 %; RBC 3.16 m/uL (3.80-5.40); RDW 15.1 % (11.5-15.5); WBC 7.2 k/uL (3.8-10.6)
[2020-08-18 17:06] LABS: HGB 8.8 gm/dL (11.4-16.0); Platelet Count 392 k/uL (150-450)
[2020-08-19 04:27] LABS: % Iron Saturation 10.03 (12.00-45.00); Ferritin 29.5 ng/mL (10.0-291.0)
== END | disposition home or self-care (01) ==
LOC: LABWHC1 16:24
PROVIDERS: ATTEND Internal Medicine Critical Care Medicine
DX: D64.9 Anemia, unspecified (principal)
CPT/HCPCS: 36415; 82728; 83540; 83550; 85025

== ENCOUNTER → 2020-09-06 | Outpatient (CLI) | payer MEDICARE ==
[2020-09-06 11:53] LABS: Basophils % (A) 1 %; Eosinophils # (A) 0.1 k/uL (0-0.7); Eosinophils % (A) 1 %; HCT 31.4 % (34.0-46.0); HGB 10.5 gm/dL (11.4-16.0); Lymphocytes # (A) 1.6 k/uL (1.0-4.8); Lymphocytes % (A) 20 %; MCHC 33.4 g/dL (31.0-37.0); MCV 86.8 fL (80.0-100.0); Mean Platelet Volume 6.7; Monocytes # (A) 0.6 k/uL (0-1.0); Monocytes % (A) 7 %; Neutrophils # (A) 5.5 k/uL (1.3-7.7); Neutrophils % (A) 69 %; Platelet Count 426 k/uL (150-450); RBC 3.62 m/uL (3.80-5.40); RDW 14.3 % (11.5-15.5)
== END | disposition home or self-care (01) ==
LOC: LABWHC1 11:17
PROVIDERS: ATTEND Internal Medicine Critical Care Medicine
DX: D64.9 Anemia, unspecified (principal)
CPT/HCPCS: 36415; 85025

== ENCOUNTER → 2020-09-07 | Outpatient (CLI) | payer MEDICARE ==
--- NOTE | 2020-09-07 14:44 | US ---
EXAMINATION TYPE: US thyroid st tissue head/neck DATE OF EXAM: 09/07/2020 COMPARISON: None CLINICAL HISTORY: 70-year-old female E04.1 thyroid nodule. F/U on thyroid nodule seen on recent CT 1 month ago TECHNIQUE: Multiple sonographic images of the thyroid gland are obtained. FINDINGS: GLAND SIZE: Right Lobe: 4.3 x 1.5 x 2.1 cm Overall Parenchyma: homogenous Left Lobe: 5.5 x 1.2 x 1.7 cm Overall Parenchyma: homogeneous Isthmus Thickness: 0.3 cm NODULES RIGHT: # of nodules measured on right: 2 1. 2.0 X 1.1 x 1.7 cm isoechoic solid nodule at the mid pole with well-defined margins; . This nod ule is wider than tall and shows intranodular vascularity. 2. 0.9 X 0.6 x 0.7 cm hypoechoic solid nodule at the lower pole with well-defined margins; . This n odule is wider than tall and shows intranodular vascularity. LEFT: # of nodules measured on left: 1 1. 0.7 X 0.5 x 0.6 cm hypoechoic mixed nodule at the lower pole with well-defined margins; . This nodule is wider than tall and shows no intranodular vascularity. ISTHMUS: # of nodules measured in the isthmus: 0 Bilateral neck scanned, no evidence of lymphadenopathy. Hypoechoic area Rt lateral neck 0.6 x 0.5 x 0.4 cm suggestive of a small lymph node. IMPRESSION: 2 solid nodules in the right lobe measuring 2.0 and 0.9 cm. One on the left measuring 0.7 cm. Conside ration can be given to FNA of the largest nodule.
== END | disposition home or self-care (01) ==
LOC: RADUSWWP 12:07
PROVIDERS: ATTEND Internal Medicine Critical Care Medicine
DX: E04.1 Nontoxic single thyroid nodule (principal)
CPT/HCPCS: 76536

== ENCOUNTER 2020-09-14 12:14 | Day surgery (SDC) | payer MEDICARE ==
[2020-09-14 12:46] VITALS: RESP 16; TEMP 98.1
[2020-09-14 14:40] VITALS: BP 141/81; PULSE 68
--- NOTE | 2020-09-14 18:58 | US ---
EXAMINATION TYPE: US FNA first lesion DATE OF EXAM: 09/14/2020 COMPARISON: Ultrasound thyroid 09/07/2020 HISTORY: Thyroid nodule, E04.1 Maximal barrier technique was utilized. Ultrasound using sterile technique. The skin overlying the ri ght thyroid nodule was localized with ultrasound and the overlying skin prepped and draped. Lidocaine used for local anesthesia. 5 passes with a 25-gauge needle were made into the nodule under ultrasoun d guidance. Aspirate specimen submitted to cytology. Following the procedure hemostasis achieved. No immediate complication. IMPRESSION: Status post ultrasound-guided fine-needle aspiration of right thyroid nodule, pathology p ending.
== END 2020-09-14 14:00 | disposition home or self-care (01) ==
LOC: RADPROMAIN 12:14
PROVIDERS: ATTEND Internal Medicine Critical Care Medicine
DX: E04.1 Nontoxic single thyroid nodule (principal)
CPT/HCPCS: 10005; 88173; 88305

== ENCOUNTER → 2020-10-25 | Outpatient (CLI) | payer MEDICARE ==
[2020-10-25 11:27] LABS: Basophils % (A) 0 %; Eosinophils # (A) 0.2 k/uL (0-0.7); Eosinophils % (A) 2 %; HCT 32.4 % (34.0-46.0); HGB 10.6 gm/dL (11.4-16.0); Lymphocytes # (A) 1.2 k/uL (1.0-4.8); Lymphocytes % (A) 13 %; MCH 27.2 pg (25.0-35.0); MCHC 32.8 g/dL (31.0-37.0); MCV 82.9 fL (80.0-100.0); Mean Platelet Volume 7.2; Monocytes # (A) 0.7 k/uL (0-1.0); Monocytes % (A) 8 %; Neutrophils % (A) 75 %; Platelet Count 319 k/uL (150-450); RBC 3.91 m/uL (3.80-5.40); RDW 14.6 % (11.5-15.5); WBC 9.3 k/uL (3.8-10.6)
[2020-10-25 19:11] LABS: % Iron Saturation 8.78 (12.00-45.00)
[2020-10-25 19:20] LABS: Ferritin 14.2 ng/mL (10.0-291.0)
== END | disposition home or self-care (01) ==
LOC: LABWHC1 09:31
PROVIDERS: ATTEND Internal Medicine Critical Care Medicine
DX: D64.9 Anemia, unspecified (principal)
CPT/HCPCS: 36415; 82728; 83540; 83550; 85025

== ENCOUNTER → 2021-09-09 | Outpatient (CLI) | payer MEDICARE ==
[2021-09-09 12:11] LABS: Basophils # (A) 0.03 X 10*3/uL (0.00-0.10); Basophils % (A) 0.4 %; Eosinophils # (A) 0.16 X 10*3/uL (0.04-0.35); Eosinophils % (A) 2.1 %; HCT 30.6 % (37.2-46.3); HGB 9.9 g/dL (12.0-15.0); Lymphocytes % (A) 22.3 %; MCH 27.6 pg (27.0-32.0); MCHC 32.4 g/dL (32.0-37.0); MCV 85.2 fL (80.0-97.0); Mean Platelet Volume 11.1 fL (9.5-12.2); Monocytes # (A) 0.67 X 10*3/uL (0.20-1.00); Monocytes % (A) 8.8 %; Neutrophils # (A) 5.03 X 10*3/uL (1.80-7.70); Platelet Count 314 X 10*3/uL (140-440); RBC 3.59 X 10*6/uL (4.10-5.20); RDW 14.4 % (11.5-14.5); WBC 7.62 X 10*3/uL (4.50-10.00)
[2021-09-09 13:36] LABS: African American GFR (CKD) 40.5 (60.0-200.0); Albumin 4.6 g/dL (3.8-4.9); Albumin/Globulin Ratio 2.19 (1.60-3.17); Anion Gap 16.3 mmol/L (4.00-12.00); BUN/Creat Ratio 14.67 Ratio (12.00-20.00); Calcium 9.3 mg/dL (8.7-10.3); Carbon Dioxide 22.7 mmol/L (21.6-31.8); Chol/HDL Ratio 3.31 Ratio; Globulin 2.1 g/dL (1.6-3.3); HDL Cholesterol 45.3 mg/dL (40.00-60.00); LDL Cholesterol,Calculated 69.5 mg/dL (0.0-131.0); Non-African American GFR(CKD) 34.9 (60.0-200.0); T4, Free (Free Thyroxine) 1.27 ng/dL (0.800-1.800); Total Bilirubin 0.3 mg/dL (0.30-1.20); Total Protein 6.7 g/dL (6.2-8.2); VLDL Calculation 35.2 mg/dL (5.00-40.00)
== END | disposition home or self-care (01) ==
LOC: LABWHC1 07:03
PROVIDERS: ATTEND Internal Medicine Critical Care Medicine
DX: Z00.00 Encounter for general adult medical examination without abnormal findings (principal); J45.909 Unspecified asthma, uncomplicated; I10 Essential (primary) hypertension; E78.2 Mixed hyperlipidemia; M81.0 Age-related osteoporosis without current pathological fracture; E04.1 Nontoxic single thyroid nodule; D64.9 Anemia, unspecified
CPT/HCPCS: 36415; 80053; 80061; 82306; 83036; 84439; 84443; 85025

== ENCOUNTER → 2021-10-11 | Outpatient (CLI) | payer MEDICARE ==
--- NOTE | 2021-10-12 07:55 | CT ---
EXAMINATION TYPE: CT soft tissue neck w con DATE OF EXAM: 10/11/2021 COMPARISON: None HISTORY: Neck mass, worse on right. History of bilateral thyroid nodules. CT DLP: 330.1 mGycm CONTRAST: CT scan of the neck is performed with IV Contrast, patient injected with 60 mL of Isovue 300. Contrast enhanced CT of the neck was performed from the skull base through the lung apices. AIRWAY: The supraglottic, glottic, and subglottic portions of the airway appear patent and free of mass. SALIVARY GLANDS: The submandibular and parotid glands are free of mass or inflammatory process. THYROID GLAND: 1.8 cm predominantly solid nodule upper pole right thyroid lobe. No additional thyroid nodules identified. LYMPH NODES: No adenopathy seen greater than 1cm. LUNG APICES: No nodule or mass is seen. OTHER: Vascular structures are patent. No significant degenerative change of the cervical spine. N o abscess seen. IMPRESSION: 1.8 cm predominantly solid nodule upper pole right thyroid lobe. No additional thyroid nodules identi fied.
--- NOTE | 2021-10-12 08:15 | US ---
EXAMINATION TYPE: US thyroid st tissue head/neck DATE OF EXAM: 10/11/2021 COMPARISON: BX 09/14/20 CLINICAL HISTORY: R22.1 Neck mass. GLAND SIZE: Right Lobe: 4.6x2.1x1.8 cm Overall Parenchyma: homogenous Left Lobe: 5.6x1.8x1.5 cm Overall Parenchyma: homogeneous Isthmus Thickness: 0.3 cm NODULES RIGHT: # of nodules measured on right: 2 1. 1.8 X 1.7 x 1.1 cm, mid mid, solid or almost completely solid, isoechoic nodule, which is wider than tall, with smooth margins, without echogenic foci. Prior size: 2.0 x 1.7 x 1.1 cm 2. 0.8 X 0.7 x 0.5 cm, lower mid, solid or almost completely solid, isoechoic nodule, which is wide r than tall, with smooth margins, without echogenic foci. Prior size: 0.9 x 0.7 x 0.6 cm LEFT: # of nodules measured on left: 1 1. 0.9 X 0.6 x 0.6 cm, lower mid, spongiform, hypoechoic nodule, which is wider than tall, with smo oth margins, with echogenic colloid foci. Prior size: 0.7 x 0.6 x 0.5 cm ISTHMUS: # of nodules measured in the isthmus: 0 Bilateral neck scanned, no evidence of lymphadenopathy. IMPRESSION: Nonspecific thyroid nodularity as noted above. Consider tissue diagnosis of the solid nodule right th yroid lobe.
== END | disposition home or self-care (01) ==
LOC: RADCTMAIN 15:28
PROVIDERS: ATTEND Internal Medicine Critical Care Medicine
DX: E04.1 Nontoxic single thyroid nodule (principal)
CPT/HCPCS: 82565; 84520; 76536; 70491; 36415; Q9967

== ENCOUNTER 2021-11-02 12:14 | Day surgery (SDC) | payer MEDICARE ==
[2021-11-02 13:33] VITALS: BP 141/68; PULSE 88; RESP 16; TEMP 98.1
--- NOTE | 2021-11-02 14:29 | US ---
EXAMINATION TYPE: US FNA thyroid first lesion DATE OF EXAM: 11/02/2021 COMPARISON: NONE HISTORY: Thyroid nodule on the right. Maximal barrier technique was utilized. After informed consent, skin overlying the right lobe thyroi d nodule was localized with ultrasound and the overlying skin prepped and draped. Ultrasound was util ized using sterile technique. Lidocaine was used for local anesthesia. Five passes with a 25-gauge n eedle were made into the nodule and aspirated specimen was submitted to cytology. Following the proc edure hemostasis achieved. No immediate complication. The patient discharged in stable condition. IMPRESSION: STATUS POST ULTRASOUND GUIDED FINE NEEDLE ASPIRATION OF THYROID NODULE, PATHOLOGY IS PEND ING. THIS PROCEDURE WAS PERFORMED BY THE UNDERSIGNED.
== END 2021-11-02 13:32 | disposition home or self-care (01) ==
LOC: RADPROMAIN 12:14
PROVIDERS: ATTEND Internal Medicine Critical Care Medicine
DX: E04.1 Nontoxic single thyroid nodule (principal)
CPT/HCPCS: 10005; 36415; 88173; 88305

== ENCOUNTER → 2023-02-01 | Outpatient (CLI) | payer MEDICARE ==
--- NOTE | 2023-02-01 18:49 | CT ---
EXAMINATION TYPE: CT soft tissue neck wo con CT DLP: 360.60 mGycm, Automated exposure control for dose reduction was used. DATE OF EXAM: 02/01/2023 6:39 PM COMPARISON: 10/11/2021. , Thyroid ultrasound 10/11/2021 and biopsy 11/02/2021. CLINICAL INDICATION:Female, 73 years old with history of R22.0;, Nodules on thyroid. BB on palpable R T side. TECHNIQUE: Standard enhanced CT of the neck. Axial sections with coronal and sagittal reformats were obtained. Contrast used: none. Oral contrast used: none. FINDINGS: Brain: Visualized portions are grossly unremarkable. Orbits: Unremarkable Sinuses: Grossly unremarkable. Spaces of the neck: Clear and symmetric. Musculoskeletal: No acute osseous pathology. Multilevel disc degeneration changes of cervical spine w ith retrolisthesis of C C4 on C5. Osteophyte formation disc space narrowing and facet and uncovertebr al joint arthropathy are also present. Lymph nodes: Multiple nonenlarged lymph nodes are seen along both anterior chains of the neck. Vascular structures: No evidence for aneurysm. Mild atherosclerotic plaque of the arterial vasculatur e. Thoracic Inlet/airway: Airway is patent. Scattered interstitial scarring/atelectasis. Left upper lung nodularity stable back to 2020 measuring 6 mm. Additional scattered peripheral reticulations are als o grossly similar to prior. Soft tissues/Thyroid: Palpable marker overlies a right thyroid gland nodule measuring up to 17 mm. No additional masses, or lymphadenopathy in this region. Other: none. IMPRESSION 1. Palpable marker on the right correlates with a 17 mm thyroid nodule. This corresponds with prior ultrasound on 10/11/2021 and was preceded biopsy on 11/02/2021. 2. Stable pulmonary interstitial reticulation in left upper lobe dominant nodule/scarring.
== END | disposition home or self-care (01) ==
LOC: RADCTMAIN 18:10
PROVIDERS: ATTEND Internal Medicine Critical Care Medicine
DX: E04.1 Nontoxic single thyroid nodule (principal); R22.0 Localized swelling, mass and lump, head; J98.4 Other disorders of lung
CPT/HCPCS: 70490

== ENCOUNTER → 2023-11-01 | Outpatient (CLI) | payer MEDICARE | END | disposition home or self-care (01) | LOC: LABWHC1 09:07 | PROVIDERS: ATTEND Internal Medicine Critical Care Medicine | DX: Z53.9 Procedure and treatment not carried out, unspecified reason (principal) ==

== ENCOUNTER → 2024-11-17 | Outpatient (CLI) | payer MEDICARE ==
--- NOTE | 2024-11-19 22:09 | BD ---
EXAMINATION TYPE: Axial Bone Density DATE OF EXAM: 11/17/2024 CLINICAL HISTORY: 74 years old Female. ICD-10 CODE: M85.88 OTH DISRD OF BONE DENSITY AND STRUCTURE, OT , Additional History: Height: 61.5 in Weight: 136 lbs FRAX RISK QUESTIONS: History of Fracture in Adulthood: rashmi feet 20's, rt hip /femur age 63, rashmi wrists age 56 Secondary Osteoporosis: 3. Menopause before 45: total hysterectomy age 37 RISK FACTORS HISTORY OF: Hip Fracture (Right/Left): rt hip age 63 History of Wrist Fracture: bilat wrist fx approximately age 56 Surgery to Hip(right): age 63 MEDICATIONS: Osteoporosis Medications: Which medication: Prolia How Lon years EXAM MEASUREMENTS: Bone mineral densitometry was performed using the [employer]. Bone mineral density as measured about the Lumbar spine is: ----- L1-L4(G/cm2): 1.508 T Score Values are as follows: ----- L1: 0.5 ----- L2: 1.8 ----- L3: 4.0 ----- L4: 4.7 ----- L1-L4: 2.7 Z Score Values are as follows: ----- L1: 2.3 ----- L2: 3.6 ----- L3: 5.9 ----- L4: 6.5 ----- L1-L4: 4.6 Bone mineral density has: Increased 34.0% since study of: 09/02/2010 Bone mineral density about the L hip (g/cm2): 0.846 T Score values are as follows: -----L Neck: -1.8 -----L Total: -1.3 Z Score values are as follows: -----L Neck: 0.2 -----L Total: 0.5 Bone mineral density has: Increased 11.5% since study of: 09/02/2010 FRAX%s: The graph provided illustrates a 18.5% chance for a major osteoporotic fx and a 3.8% chance f or the hips probability for fx in 10 years time. IMPRESSION: Osteopenia (T Score between -2.5 and -1). There is slightly increased risk of fracture and the patient may be considered for treatment. Re-Screen 2-5 years. NOTE: T-SCORE=SD OF THE YOUNG ADULT MEAN. [facility], , 11/19/2024 10:07 PM
== END | disposition home or self-care (01) ==
LOC: RADBDWWP 07:25
PROVIDERS: ATTEND Internal Medicine Critical Care Medicine
DX: M85.88 Other specified disorders of bone density and structure, other site (principal)
CPT/HCPCS: 77080

== ENCOUNTER → 2025-04-29 | Outpatient (CLI) | payer MEDICARE ==
--- NOTE | 2025-04-29 10:07 | US ---
EXAMINATION TYPE: US thyroid st tissue head/neck DATE OF EXAM: 04/29/2025 COMPARISON: CLINICAL INDICATION: Female, 75 years old with history of E04.1 THYROID NODULE; Follow up nodules TECHNIQUE: Grayscale and color Doppler imaging of the thyroid gland. FINDINGS: GLAND SIZE: Right Lobe: 4.8 x 2.3 x 1.7 cm Overall Parenchyma: homogeneous Left Lobe: 5.0 x 1.7 x 1.4 cm Overall Parenchyma: homogeneous Isthmus Thickness: 0.4 cm NODULES RIGHT: # of nodules measured on right: 2 1. 2.0 X 1.9 x 1.1 cm, upper mid, Prior size: 1.8 x 1.7 x 1.1 cm TIRADS Score: 4 TIRADS Category 4: Composition: Solid or almost completely solid (2 points). Echogenicity: Hypoechoic (2 points). Shape: Wider than tall (0 points). Margin: Smooth (0 points). Echogenic foci: None or large comet-tail artifacts (0 points) Recommendation: Previously biopsied 11/02/2021 2. 0.9 X 0.7 x 0.5 cm, lower lateral, Prior size: 0.8 x 0.7 x 0.5 cm TIRADS Score: 4 TIRADS Category 4: Composition: Solid or almost completely solid (2 points). Echogenicity: Hypoechoic (2 points). Shape: Wider than tall (0 points). Margin: Smooth (0 points). Echogenic foci: None or large comet-tail artifacts (0 points) LEFT: # of nodules measured on left: 1 1. 1.0 X 0.7 x 0.6 cm, lower lateral, mixed cystic and solid, hypoechoic nodule, which is wider maria m n tall, with smooth margins, without echogenic foci. Prior size: 0.9 x 0.6 x 0.6 cm TIRADS Score: 3 TIRADS Category 3: Composition: Mixed cystic and solid (1 point). Echogenicity: Hypoechoic (2 points). Shape: Wider than tall (0 points). Margin: Smooth (0 points). Echogenic foci: None or large comet-tail artifacts (0 points) Recommendation: If >2.5cm: FNA; If >1.5cm: Follow up at 1,3,5 years Bilateral neck scanned, no evidence of lymphadenopathy. IMPRESSION: Bilateral thyroid nodules. Right thyroid nodule #1 Previously biopsied 11/02/2021, the remainder of t he thyroid nodules meet criteria for follow-up. Highest TI-RADS level nodule reported: 2017 ACR TI-RADS LEVEL: TI-RADS 4 - Moderately Suspicious: Follow if > 1 cm, FNA if > 1.5 cm TI-RADS assessment score and recommendation for follow-up based on appropriate scoring and treatment protocols. TR1 Benign No FNA TR2 Not suspicious No FNA TR3: If nodule size is ? 2.5 cm, FNA is recommended. If nodule size is ? 1.5 cm, follow-up imaging at 1, 3, and 5 years is recommended. TR4: If nodule size is ? 1.5 cm, FNA is recommended. If nodule size is ? 1.0 cm, follow-up imaging at 1, 2, 3, and 5 years is recommended. TR5: If nodule size is ? 1.0 cm, FNA is recommended. If nodule size is ? 0.5 cm, annual follow-up for up to 5 years is recommended. TR 1 thyroid nodules have a 0.3 % risk of malignancy. TR 2 thyroid nodules have a 1.5 % risk of malignancy. TR 3 thyroid nodules have a 4.8 % risk of malignancy. TR 4 thyroid nodules have a 9.1 % risk of malignancy. TR 5 thyroid nodules have a 35 % risk of malignancy. [email or web address] [facility], , 04/29/2025 10:04 AM
== END | disposition home or self-care (01) ==
LOC: RADUSWWP 06:51
PROVIDERS: ATTEND Internal Medicine Critical Care Medicine
DX: E04.2 Nontoxic multinodular goiter (principal)
CPT/HCPCS: 76536

== ENCOUNTER 2025-05-26 08:17 | Day surgery (SDC) | payer MEDICARE ==
[2025-05-26 09:03] VITALS: RESP 16; TEMP 98.3
[2025-05-26 09:46] VITALS: BP 145/88; PULSE 85
--- NOTE | 2025-05-26 14:46 | US ---
CLINICAL INDICATION: Female 75 years old with a history of E04.1 NONTOXIC SINGLE THYROID NODULE. Abno rmal ultrasound. History of right-sided benign FNA 2020. COMPARISON: Ultrasound thyroid study from April 29, 2025 and older studies. PROCEDURE: ULTRASOUND-GUIDED THYROID RightNODULE FNA Pre-procedure diagnosis: Enlarging labeled TR 4 right-sided solid thyroid nodule. Post-procedure diagnosis: I favor TR3 nodule as I think it is isoechoic to adjacent thyroid. Anesthesia: Locally anesthetized with 1% lidocaine. Physician: Exam was performed by myself EBL: Minimal. Specimens: 5 FNA aspirates Condition: Stable. Unanticipated events: None. Procedure Description: Informed consent was obtained. Discussion included the possibility of nondiagnostic results. Patient was brought to the ultrasound procedure suite and placed supine upon the table with neck extended. M ultiple grayscale images and real-time imaging was obtained of the thyroid gland. The thyroid gland w as scanned. Targeted right-sided nodule measuring near 2.0 cm is redemonstrated. The skin over the procedure site was marked, prepped, and draped in usual sterile fashion. Then a ti meout was then performed. The site was then locally anesthetized with 1% lidocaine. Under direct ult rasound guidance the needle was then localized to the lesion. A total of 5 25-gauge FNA samples were obtained from the lesion. Samples were sent to the lab for further evaluation. After the samples were obtained, hemostasis achieved at the site by manual compression. A sterile Ba nd-Aid was placed. Patient tolerated the procedure well with no immediate complication. Patient was subsequently discharged home. IMPRESSION: Successful ultrasound guided FNA with samples sent to pathology for further analysis. Low index of suspicion noted at the time of procedure [facility], , 05/26/2025 2:44 PM
== END 2025-05-26 09:35 | disposition home or self-care (01) ==
LOC: RADPROMAIN 08:17
PROVIDERS: ATTEND Internal Medicine Endocrinology, Diabetes & Metabolism
DX: E04.1 Nontoxic single thyroid nodule (principal)
CPT/HCPCS: 10005; 88173; 88305